=== PATIENT | male | born 1945 | race African-American/Black ===

== ENCOUNTER 2017-07-03 01:02 | Inpatient (IN) | payer MEDICARE, MEDICAID ==
[~2017-07-03] VITALS: Ht 180.3 cm; Wt 99.3 kg
[~2017-07-03 01:02] MED LIST: FINA5TAB11 PO; FURO40TA5 PO; MAGN400C PO; METF10002 PO; POTA10CA42 PO; SITA100T11 PO; TAMS0.4C31 PO
[2017-07-03 07:42] LABS: BASOPHILS % 0.8 % (0.0-2.0); EOSINOPHILS % 7.3 % (0.0-5.0); HEMATOCRIT. 39.5 % (42.0-52.0); HEMOGLOBIN. 13.1 g/dL (14.0-18.0); MEAN CORPUSCULAR HEMOGLOBIN 28.7 pg (28.0-32.0); MEAN CORPUSCULAR VOLUME 86.2 fL (80.0-94.0); MONOCYTES % 8.4 % (2.0-8.0); NEUTROPHILS % 61.5 % (40.0-76.0); PLATELET 213 x1000/uL (130-400); RED BLOOD CELL COUNT 4.58 mill/uL (4.7-6.1); RED CELL DISTRIBUTION WIDTH 14.3 % (11.6-14.6)
[2017-07-03 07:50] LABS: INR 1.1; PARTIAL THROMBOPLASTIN TIME 26.4 sec (23.4-31.0); PROTHROMBIN TIME 11.2 sec (9.4-11.6)
[2017-07-03 07:58] LABS: CARBON DIOXIDE 34 mEq/L (21-32); CHLORIDE 102 mEq/L (98-107)
[2017-07-03 08:04] LABS: TROPONIN I 0.07 ng/mL (0.00-0.04)
[2017-07-03] MEDS ORDERED: ASPIRIN 325MG EC TABLET PO ONE (08:15)
[2017-07-03] MEDS ORDERED: FUROSEMIDE 40MG TABLET PO ONE (09:00)
[2017-07-03] MEDS ORDERED: ACETAMINOPHEN 325MG TABLET PO PRN (11:00)
[2017-07-03] MEDS ORDERED: ONDANSETRON HCL 4MG/2ML VIAL IV PRN (11:00)
[2017-07-03] MEDS ORDERED: GUAIFENESIN 200MG/10ML SUGAR FREE UDC PO PRN (11:00)
[2017-07-03] MEDS ORDERED: DOCUSATE SODIUM 100MG CAPSULE PO PRN (11:00)
[2017-07-03] MEDS ORDERED: ENOXAPARIN 40MG/0.4ML SYR SUBCUT SCH (11:00)
[2017-07-03] MEDS ORDERED: MAGNESIUM/ALUMINUM HYDROXIDE/SIMETHICONE 30ML UDC PO PRN (11:00)
[2017-07-03] MEDS ORDERED: IPRATROPIUM/ALBUTEROL 0.5-3(2.5)MG/3ML NEB INH PRN (11:00)
[2017-07-03 11:37] LABS: CARBON DIOXIDE 35 mEq/L (21-32); CHLORIDE 101 mEq/L (98-107)
[2017-07-03 13:29] LABS: CLARITY URINE CLEAR (CLEAR); COLOR URINE YELLOW (YELLOW); KETONES URINE NEGATIVE (NEGATIVE); LEUKOCYTE ESTERASE URINE NEGATIVE (NEGATIVE); NITRITE URINE NEGATIVE (NEGATIVE); OCCULT BLOOD URINE NEGATIVE (NEGATIVE); PROTEIN URINE NEGATIVE (NEGATIVE); UROBILINOGEN URINE 0.2 E.U./dL (0.2-1.0)
[2017-07-03 14:25] LABS: *AMPHETAMINES SCREEN URINE NEGATIVE (NEGATIVE); *BARBITURATES SCREEN URINE NEGATIVE (NEGATIVE); *BENZODIAZEPINES SCREEN URINE NEGATIVE (NEGATIVE); *COCAINE SCREEN URINE NEGATIVE (NEGATIVE); CANNABINOID URINE SCREEN NEGATIVE (NEGATIVE); METHADONE URINE SCREEN NEGATIVE (NEGATIVE); OPIATES URINE SCREEN NEGATIVE (NEGATIVE); PHENCYCLIDINE URINE SCREEN NEGATIVE (NEGATIVE)
[2017-07-03 18:05] LABS: CREATINE KINASE MB FRACTION 1.6 ng/mL (0.5-3.6); TROPONIN I 0.08 ng/mL (0.00-0.04)
[2017-07-03] MEDS: CLONIDINE 0.1MG TABLET PO PRN (20:25)
[2017-07-03] MEDS: HYDROCODONE/ACETAMINOPHEN 5/325MG TABLET PO PRN (21:10)
[2017-07-03 23:30] VITALS: BP 115/76
[2017-07-04] MEDS ORDERED: FUROSEMIDE 40MG/4ML VIAL IV SCH (00:45)
[2017-07-04] MEDS ORDERED: GABA-531 PO (01:43)
[2017-07-04] MEDS ORDERED: PRAV20TA57 PO (01:43)
[2017-07-04] MEDS ORDERED: CARV12.545 PO (01:43)
[2017-07-04] MEDS ORDERED: DEXTROSE 50% WATER 50ML SYRINGE IV PRN (01:45)
[2017-07-04] MEDS ORDERED: CHOL100046 PO (02:07)
[2017-07-04 04:00] VITALS: BP 162/92
[2017-07-04 06:38] LABS: BASOPHILS % 0.5 % (0.0-2.0); EOSINOPHILS % 8.6 % (0.0-5.0); HEMATOCRIT. 37.4 % (42.0-52.0); HEMOGLOBIN. 12.7 g/dL (14.0-18.0); LYMPHOCYTES % 31.8 % (20.0-50.0); MEAN CORPUSCULAR VOLUME 85.3 fL (80.0-94.0); MEAN PLATELET VOLUME 8.5 fl (7.4-10.4); MONOCYTES % 9.3 % (2.0-8.0); NEUTROPHILS % 49.8 % (40.0-76.0); PLATELET 201 x1000/uL (130-400); RED BLOOD CELL COUNT 4.39 mill/uL (4.7-6.1); RED CELL DISTRIBUTION WIDTH 14.5 % (11.6-14.6)
[2017-07-04] MEDS: CLONIDINE 0.1MG TABLET PO PRN (06:53)
[2017-07-04] MEDS: BLOOD SUGAR DIAGNOSTIC STRIP TEST SCH ×4 (06:55→21:30)
[2017-07-04 07:42] VITALS: BP 145/86
[2017-07-04] MEDS: INSULIN LISPRO 100 UNITS/ML SUBCUT SCH ×4 (07:50→21:00)
[2017-07-04 08:12] LABS: AMYLASE 41 IU/L (25-115); CARBON DIOXIDE 31 mEq/L (21-32); CHLORIDE 104 mEq/L (98-107); HDL CHOLESTEROL 45 mg/dL (40-59); LDL CHOLESTEROL 55 mg/dL (5-100)
[2017-07-04] MEDS ORDERED: BUDESONIDE 0.5MG/2ML NEB HHN SCH (09:00)
[2017-07-04] MEDS: ASPIRIN 81MG EC TABLET PO SCH (09:51)
[2017-07-04] MEDS: ENOXAPARIN 30MG/0.3ML SYR SUBCUT SCH ×2 (09:51→21:28)
[2017-07-04] MEDS ORDERED: MEDICATION NOT ON FORMULARY EA (Sitagliptin Phosphate (Januvia) 1 TAB) PO SCH (10:45)
[2017-07-04] MEDS ORDERED: MEDICATION NOT ON FORMULARY EA (Magnesium Oxide (Magnesium) 400 MG) PO SCH (10:45)
[2017-07-04] MEDS ORDERED: MEDICATION NOT ON FORMULARY EA (Pravastatin Sodium 20 MG) PO SCH (10:45)
[2017-07-04] MEDS ORDERED: MEDICATION NOT ON FORMULARY EA (Potassium Chloride 10 MEQ) PO SCH (10:45)
[2017-07-04 12:00] VITALS: BP 148/92
[2017-07-04] MEDS: TAMSULOSIN HCL 0.4MG SR CAPSULE PO SCH (12:49)
[2017-07-04] MEDS: GABAPENTIN 300MG CAPSULE PO SCH (12:49)
[2017-07-04] MEDS: FINASTERIDE 5MG TABLET PO SCH (12:50)
[2017-07-04] MEDS: FUROSEMIDE 40MG/4ML VIAL IV SCH ×2 (14:17→21:39)
[2017-07-04] MEDS: MAGNESIUM OXIDE 400MG TABLET PO SCH (14:17)
[2017-07-04] MEDS: POTASSIUM CHLORIDE 10MEQ TABLET SR PO SCH (14:17)
[2017-07-04] MEDS: LINAGLIPTIN 5MG TABLET PO SCH (14:18)
[2017-07-04] MEDS ORDERED: POTASSIUM CHLORIDE 20MEQ TABLET SR PO SCH (15:30)
[2017-07-04 16:00] VITALS: BP 136/75
[2017-07-04] MEDS ORDERED: POTASSIUM CHLORIDE 20MEQ TABLET SR PO NR (16:15)
[2017-07-04] MEDS: METFORMIN HCL 500MG TABLET PO SCH (18:00)
[2017-07-04 20:00] VITALS: BP 155/88
[2017-07-04] MEDS ORDERED: ATORVASTATIN CALCIUM 10MG TABLET PO SCH (21:00)
[2017-07-04] MEDS: HYDROCODONE/ACETAMINOPHEN 5/325MG TABLET PO PRN (21:29)
[2017-07-04] MEDS: CARVEDILOL 12.5MG TABLET PO SCH (21:29)
[2017-07-05] VITALS: BP 139/88
[2017-07-05 04:00] VITALS: BP 136/78
[2017-07-05] MEDS: BLOOD SUGAR DIAGNOSTIC STRIP TEST SCH ×2 (06:13→12:20)
[2017-07-05 06:50] LABS: BASOPHILS % 0.6 % (0.0-2.0); EOSINOPHILS % 9.2 % (0.0-5.0); HEMATOCRIT. 36.8 % (42.0-52.0); HEMOGLOBIN. 12.3 g/dL (14.0-18.0); LYMPHOCYTES % 32.7 % (20.0-50.0); MEAN CORPUSCULAR HEMOGLOBIN 28.3 pg (28.0-32.0); MEAN CORPUSCULAR VOLUME 84.9 fL (80.0-94.0); MEAN PLATELET VOLUME 8.2 fl (7.4-10.4); MONOCYTES % 7.6 % (2.0-8.0); NEUTROPHILS % 49.9 % (40.0-76.0); PLATELET 222 x1000/uL (130-400); RED BLOOD CELL COUNT 4.33 mill/uL (4.7-6.1); RED CELL DISTRIBUTION WIDTH 14.2 % (11.6-14.6)
[2017-07-05 07:44] LABS: CARBON DIOXIDE 27 mEq/L (21-32); CHLORIDE 101 mEq/L (98-107)
[2017-07-05] MEDS: INSULIN LISPRO 100 UNITS/ML SUBCUT SCH ×2 (07:50→13:36)
[2017-07-05 08:00] VITALS: BP 146/80
[2017-07-05] MEDS ORDERED: MEDICATION NOT ON FORMULARY EA (Cholecalciferol (Vitamin D) 50,000 UNIT) PO SCH (09:00)
[2017-07-05] MEDS ORDERED: ERGOCALCIFEROL 50000UNITS CAPSULE PO SCH (09:00)
[2017-07-05] MEDS: GABAPENTIN 300MG CAPSULE PO SCH (10:09)
[2017-07-05] MEDS: POTASSIUM CHLORIDE 10MEQ TABLET SR PO SCH (10:09)
[2017-07-05] MEDS: MAGNESIUM OXIDE 400MG TABLET PO SCH (10:10)
[2017-07-05] MEDS: TAMSULOSIN HCL 0.4MG SR CAPSULE PO SCH (10:10)
[2017-07-05] MEDS: LINAGLIPTIN 5MG TABLET PO SCH (10:13)
[2017-07-05] MEDS: FINASTERIDE 5MG TABLET PO SCH (10:13)
[2017-07-05] MEDS: CARVEDILOL 12.5MG TABLET PO SCH (10:13)
[2017-07-05] MEDS: FUROSEMIDE 40MG/4ML VIAL IV SCH (10:13)
[2017-07-05] MEDS: ASPIRIN 81MG EC TABLET PO SCH (10:13)
[2017-07-05] MEDS: ENOXAPARIN 30MG/0.3ML SYR SUBCUT SCH (10:14)
[2017-07-05] MEDS: METFORMIN HCL 500MG TABLET PO SCH (10:27)
[2017-07-05 12:00] VITALS: BP 156/92
[2017-07-05 15:25] VITALS: BP 145/84
== END 2017-07-05 16:15 | disposition home or self-care (01) | DRG 291 ==
LOC: ER 01:02 → 6WST 06:55 → EDBEDREQ 20:17 → ENRESERV 21:10 → EDBEDREQ 22:49
PROVIDERS: ADMIT Internal Medicine; ATTEND Internal Medicine
DX: I11.0 Hypertensive heart disease with heart failure (principal); K85.90 Acute pancreatitis without necrosis or infection, unspecified; I24.9 Acute ischemic heart disease, unspecified; J44.9 Chronic obstructive pulmonary disease, unspecified; I50.23 Acute on chronic systolic (congestive) heart failure; I42.0 Dilated cardiomyopathy; E11.9 Type 2 diabetes mellitus without complications; E78.00 Pure hypercholesterolemia, unspecified; E78.5 Hyperlipidemia, unspecified; K76.0 Fatty (change of) liver, not elsewhere classified; N40.0 Benign prostatic hyperplasia without lower urinary tract symptoms; Z90.49 Acquired absence of other specified parts of digestive tract; Z79.899 Other long term (current) drug therapy
CPT/HCPCS: 36415; 71045; 76700; 80048; 80053; 80061; 80305; 81001; 82150; 82550; 82553; 82962; 83690; 83735; 83880; 84443; 84484; 85025; 85610; 85730; 87040; 93005; 93306; 93970; 99285; J1650; J1815; J1940

== ENCOUNTER 2018-09-23 15:10 | Inpatient (IN) | payer MEDICARE, OTHER ==
[~2018-09-23] VITALS: Ht 177.8 cm; Wt 95.5 kg
[~2018-09-23 15:10] MED LIST changes: +CARV12.545 PO; +CHOL100046 PO; +GABA-531 PO; +METF-416 PO; -METF10002 PO; +PRAV20TA57 PO
[2018-09-23 15:47] LABS: BASOPHILS % 0.7 % (0.0-2.0); EOSINOPHILS % 3.5 % (0.0-5.0); HEMATOCRIT. 44.5 % (42.0-52.0); HEMOGLOBIN. 14.8 g/dL (14.0-18.0); LYMPHOCYTES % 17.5 % (20.0-50.0); MEAN CORPUSCULAR HEMOGLOBIN 28.4 pg (28.0-32.0); MEAN CORPUSCULAR VOLUME 85.3 fL (80.0-94.0); MEAN PLATELET VOLUME 8.7 fl (7.4-10.4); NEUTROPHILS % 72.3 % (40.0-76.0); PLATELET 202 x1000/uL (130-400); RED BLOOD CELL COUNT 5.22 mill/uL (4.7-6.1); RED CELL DISTRIBUTION WIDTH 14.6 % (11.6-14.6)
[2018-09-23 15:52] LABS: CHLORIDE 99 mEq/L (98-107)
[2018-09-23 15:53] LABS: INR 1.1; PROTHROMBIN TIME 11.5 sec (9.1-11.1)
[2018-09-23 15:59] LABS: ETHANOL BLOOD < 10 mg/dL
[2018-09-23 16:01] LABS: LDL CHOLESTEROL 140 mg/dL (5-100)
[2018-09-23 16:03] LABS: CREATINE KINASE 133 IU/L (39-308)
[2018-09-23] MEDS ORDERED: INSULIN REGULAR (HUMULIN R) 300UNITS/3ML SUBCUT ONE (16:15)
[2018-09-23] MEDS ORDERED: IOHEXOL-350 100 ML BOTTLE ONE (16:55)
[2018-09-23 19:02] LABS: CLARITY URINE CLEAR (CLEAR); COLOR URINE YELLOW (YELLOW); KETONES URINE NEGATIVE (NEGATIVE); LEUKOCYTE ESTERASE URINE NEGATIVE (NEGATIVE); NITRITE URINE NEGATIVE (NEGATIVE); OCCULT BLOOD URINE TRACE (NEGATIVE); PROTEIN URINE TRACE (NEGATIVE); SPECIFIC GRAVITY URINE 1.033 (1.005-1.030); UROBILINOGEN URINE 0.2 E.U./dL (0.2-1.0)
[2018-09-23] MEDS ORDERED: DOCUSATE SODIUM 100MG CAPSULE PO PRN (19:15)
[2018-09-23] MEDS ORDERED: CLONIDINE 0.1MG TABLET PO PRN (19:15)
[2018-09-23] MEDS ORDERED: ACETAMINOPHEN 325MG TABLET PO PRN (19:15)
[2018-09-23] MEDS ORDERED: ONDANSETRON HCL 4MG/2ML INJ IV PRN (19:15)
[2018-09-23 19:30] LABS: *AMPHETAMINES SCREEN URINE NEGATIVE (NEGATIVE); *BARBITURATES SCREEN URINE NEGATIVE (NEGATIVE)
[2018-09-23 19:31] LABS: *BENZODIAZEPINES SCREEN URINE NEGATIVE (NEGATIVE); *COCAINE SCREEN URINE NEGATIVE (NEGATIVE); CANNABINOID URINE SCREEN NEGATIVE (NEGATIVE); METHADONE URINE SCREEN NEGATIVE (NEGATIVE); OPIATES URINE SCREEN NEGATIVE (NEGATIVE); PHENCYCLIDINE URINE SCREEN NEGATIVE (NEGATIVE)
[2018-09-23] MEDS ORDERED: INSULIN GLARGINE UD 100 UNITS/ML SYR SUBCUT SCH (22:00)
[2018-09-23] MEDS ORDERED: FINASTERIDE 5MG TABLET PO SCH (22:00)
[2018-09-23] MEDS ORDERED: ENOXAPARIN 40MG/0.4ML SYR SUBCUT NR (22:00)
[2018-09-23] MEDS ORDERED: CARVEDILOL 12.5MG TABLET PO NR (22:15)
[2018-09-23] MEDS ORDERED: ASPIRIN 81MG EC TABLET PO NR (22:15)
[2018-09-23] MEDS ORDERED: ATORVASTATIN CALCIUM 20MG TABLET PO SCH (22:15)
[2018-09-24] MEDS: HYDROCODONE/ACETAMINOPHEN 5/325MG TABLET PO PRN (01:08)
[2018-09-24 05:15] LABS: EOSINOPHILS % 5.3 % (0.0-5.0); HEMATOCRIT. 41.3 % (42.0-52.0); HEMOGLOBIN. 13.6 g/dL (14.0-18.0); LYMPHOCYTES % 28.4 % (20.0-50.0); MEAN CORPUSCULAR HEMOGLOBIN 28.1 pg (28.0-32.0); MEAN CORPUSCULAR VOLUME 85.4 fL (80.0-94.0); MEAN PLATELET VOLUME 8.4 fl (7.4-10.4); MONOCYTES % 8.5 % (2.0-8.0); NEUTROPHILS % 56.8 % (40.0-76.0); PLATELET 170 x1000/uL (130-400); RED BLOOD CELL COUNT 4.84 mill/uL (4.7-6.1); RED CELL DISTRIBUTION WIDTH 14.5 % (11.6-14.6)
[2018-09-24 05:21] LABS: CHLORIDE 102 mEq/L (98-107)
[2018-09-24] MEDS: FINASTERIDE 5MG TABLET PO SCH (09:00)
[2018-09-24] MEDS: TAMSULOSIN HCL 0.4MG SR CAPSULE PO SCH (09:00)
[2018-09-24] MEDS: CARVEDILOL 12.5MG TABLET PO SCH ×2 (09:00→22:29)
[2018-09-24] MEDS: ASPIRIN 81MG EC TABLET PO SCH (09:00)
[2018-09-24] MEDS ORDERED: ATORVASTATIN CALCIUM 20MG TABLET PO SCH (21:00)
[2018-09-24] MEDS ORDERED: ENOXAPARIN 40MG/0.4ML SYR SUBCUT SCH (22:00)
[2018-09-24] MEDS: INSULIN GLARGINE UD 100 UNITS/ML SYR SUBCUT SCH (22:29)
[2018-09-24 23:30] VITALS: BP 161/108
[2018-09-25] VITALS (14 sets, daily range): BP systolic 125–172; BP diastolic 77–108
[2018-09-25] MEDS: FINASTERIDE 5MG TABLET PO SCH (08:34)
[2018-09-25] MEDS: ENOXAPARIN 30MG/0.3ML SYR SUBCUT SCH ×2 (08:34→22:08)
[2018-09-25] MEDS: CARVEDILOL 12.5MG TABLET PO SCH ×2 (08:36→22:07)
[2018-09-25] MEDS: ASPIRIN 81MG EC TABLET PO SCH (08:36)
[2018-09-25] MEDS: TAMSULOSIN HCL 0.4MG SR CAPSULE PO SCH (08:37)
[2018-09-25] MEDS: LISINOPRIL 20MG TABLET PO SCH (09:51)
[2018-09-25] MEDS: HYDROCODONE/ACETAMINOPHEN 5/325MG TABLET PO PRN (11:03)
[2018-09-25 12:06] LABS: BASOPHILS % 0.3 % (0.0-2.0); EOSINOPHILS % 4.9 % (0.0-5.0); HEMATOCRIT. 40.3 % (42.0-52.0); HEMOGLOBIN. 13.3 g/dL (14.0-18.0); MEAN CORPUSCULAR HEMOGLOBIN 28.1 pg (28.0-32.0); MEAN PLATELET VOLUME 8.6 fl (7.4-10.4); MONOCYTES % 7.4 % (2.0-8.0); NEUTROPHILS % 65.4 % (40.0-76.0); PLATELET 161 x1000/uL (130-400); RED BLOOD CELL COUNT 4.74 mill/uL (4.7-6.1); RED CELL DISTRIBUTION WIDTH 14.7 % (11.6-14.6)
[2018-09-25 12:14] LABS: CHLORIDE 100 mEq/L (98-107)
[2018-09-25] MEDS: BLOOD SUGAR DIAGNOSTIC STRIP TEST SCH ×3 (12:57→21:00)
[2018-09-25] MEDS ORDERED: NON FORMULARY PATIENT HOME MED XX SCH (13:00)
[2018-09-25] MEDS ORDERED: DEXTROSE 50% WATER 50ML SYRINGE IV PRN (13:00)
[2018-09-25] MEDS: LINAGLIPTIN 5MG TABLET PO SCH (13:17)
[2018-09-25] MEDS: INSULIN LISPRO 100 UNITS/ML SUBCUT SCH ×3 (13:19→22:09)
[2018-09-25] MEDS: HYDROMORPHONE HCL/PF 2MG/ML CPJ IV PRN ×2 (16:06→22:16)
[2018-09-25] MEDS: METFORMIN HCL 500MG TABLET PO SCH (18:22)
[2018-09-25] MEDS: ATORVASTATIN CALCIUM 40MG TABLET PO SCH (22:07)
[2018-09-26] VITALS (12 sets, daily range): BP systolic 116–176; BP diastolic 70–99
[2018-09-26] MEDS: INSULIN GLARGINE UD 100 UNITS/ML SYR SUBCUT SCH (00:03)
[2018-09-26 06:26] LABS: BASOPHILS % 0.2 % (0.0-2.0); EOSINOPHILS % 1.9 % (0.0-5.0); HEMATOCRIT. 39.7 % (42.0-52.0); HEMOGLOBIN. 13.2 g/dL (14.0-18.0); LYMPHOCYTES % 12.8 % (20.0-50.0); MEAN CORPUSCULAR VOLUME 84.5 fL (80.0-94.0); MEAN PLATELET VOLUME 8.8 fl (7.4-10.4); NEUTROPHILS % 77.1 % (40.0-76.0); PLATELET 175 x1000/uL (130-400); RED CELL DISTRIBUTION WIDTH 14.6 % (11.6-14.6)
[2018-09-26 06:39] LABS: CHLORIDE 103 mEq/L (98-107)
[2018-09-26] MEDS: BLOOD SUGAR DIAGNOSTIC STRIP TEST SCH ×4 (08:23→21:00)
[2018-09-26] MEDS: ENOXAPARIN 30MG/0.3ML SYR SUBCUT SCH ×2 (09:05→22:34)
[2018-09-26] MEDS: LISINOPRIL 20MG TABLET PO SCH (09:06)
[2018-09-26] MEDS: LINAGLIPTIN 5MG TABLET PO SCH (09:06)
[2018-09-26] MEDS: FINASTERIDE 5MG TABLET PO SCH (09:07)
[2018-09-26] MEDS: TAMSULOSIN HCL 0.4MG SR CAPSULE PO SCH (09:07)
[2018-09-26] MEDS: ASPIRIN 81MG EC TABLET PO SCH (09:07)
[2018-09-26] MEDS: CARVEDILOL 12.5MG TABLET PO SCH ×2 (09:08→22:35)
[2018-09-26] MEDS: INSULIN LISPRO 100 UNITS/ML SUBCUT SCH ×4 (09:10→22:36)
[2018-09-26] MEDS: METFORMIN HCL 500MG TABLET PO SCH ×2 (09:25→17:32)
[2018-09-26] MEDS: HYDROMORPHONE HCL/PF 2MG/ML CPJ IV PRN (15:35)
[2018-09-26] MEDS: ATORVASTATIN CALCIUM 40MG TABLET PO SCH (22:34)
[2018-09-26] MEDS ORDERED: INSULIN GLARGINE UD 100 UNITS/ML SYR SUBCUT SCH (23:30)
[2018-09-27] VITALS (12 sets, daily range): BP systolic 118–166; BP diastolic 60–93
[2018-09-27] MEDS: HYDROCODONE/ACETAMINOPHEN 5/325MG TABLET PO PRN (04:43)
[2018-09-27 06:14] LABS: BASOPHILS % 0.1 % (0.0-2.0); EOSINOPHILS % 2.4 % (0.0-5.0); HEMATOCRIT. 40.7 % (42.0-52.0); HEMOGLOBIN. 13.2 g/dL (14.0-18.0); LYMPHOCYTES % 12.2 % (20.0-50.0); MEAN CORPUSCULAR VOLUME 86.5 fL (80.0-94.0); NEUTROPHILS % 75.3 % (40.0-76.0); PLATELET 149 x1000/uL (130-400); RED CELL DISTRIBUTION WIDTH 14.3 % (11.6-14.6)
[2018-09-27 06:58] LABS: CHLORIDE 103 mEq/L (98-107)
[2018-09-27] MEDS: BLOOD SUGAR DIAGNOSTIC STRIP TEST SCH ×4 (08:09→20:59)
[2018-09-27] MEDS: METFORMIN HCL 500MG TABLET PO SCH ×2 (08:21→17:41)
[2018-09-27] MEDS: INSULIN LISPRO 100 UNITS/ML SUBCUT SCH ×4 (08:21→21:10)
[2018-09-27] MEDS: ENOXAPARIN 30MG/0.3ML SYR SUBCUT SCH ×2 (08:21→20:59)
[2018-09-27] MEDS: FINASTERIDE 5MG TABLET PO SCH (08:22)
[2018-09-27] MEDS: LISINOPRIL 20MG TABLET PO SCH (08:22)
[2018-09-27] MEDS: CARVEDILOL 12.5MG TABLET PO SCH ×2 (08:22→20:58)
[2018-09-27] MEDS: LINAGLIPTIN 5MG TABLET PO SCH (08:22)
[2018-09-27] MEDS: ASPIRIN 81MG EC TABLET PO SCH (08:22)
[2018-09-27] MEDS: TAMSULOSIN HCL 0.4MG SR CAPSULE PO SCH (08:22)
[2018-09-27] MEDS: HYDROMORPHONE HCL/PF 2MG/ML CPJ IV PRN ×2 (12:16→18:34)
[2018-09-27] MEDS ORDERED: BISACODYL 5MG TABLET PO PRN (15:00)
[2018-09-27] MEDS ORDERED: DOCUSATE SODIUM 100MG CAPSULE PO SCH (17:00)
[2018-09-27] MEDS: ATORVASTATIN CALCIUM 40MG TABLET PO SCH (20:58)
== END 2018-09-27 23:49 | DRG 65 ==
LOC: ER 16:03 → EDBEDREQ 18:50 → EDBEDREQTM 18:50 → 5EST 09-24 18:47 → ENRESERV 09-24 20:59
PROVIDERS: ADMIT Internal Medicine Nephrology; ATTEND Internal Medicine Nephrology
PROC: 4B02XSZ Measurement of Cardiac Pacemaker, External Approach (ICD-10-PCS; principal; 2018-09-24)
DX: I63.9 Cerebral infarction, unspecified (principal); G81.91 Hemiplegia, unspecified affecting right dominant side; I25.10 Atherosclerotic heart disease of native coronary artery without angina pectoris; E78.5 Hyperlipidemia, unspecified; I11.9 Hypertensive heart disease without heart failure; E11.65 Type 2 diabetes mellitus with hyperglycemia; G89.29 Other chronic pain; I25.5 Ischemic cardiomyopathy; Z79.4 Long term (current) use of insulin; Z79.899 Other long term (current) drug therapy; Z90.49 Acquired absence of other specified parts of digestive tract; Z95.810 Presence of automatic (implantable) cardiac defibrillator; Z79.82 Long term (current) use of aspirin
CPT/HCPCS: 36415; 70496; 70498; 71045; 80048; 80305; 80320; 82465; 82550; 82962; 83721; 83880; 84484; 92610; 93005; 93306; 96372; 97112; 97163; 97166; 97530; 97535; 99291; J1170; J1650; J1815; Q9967; G0480

== ENCOUNTER 2018-09-27 23:12 | Inpatient (IN) | payer MEDICARE, OTHER ==
[~2018-09-27] VITALS: Ht 177.8 cm; Wt 95.5 kg
[2018-09-27 23:30] VITALS: BP 128/72
[2018-09-28] VITALS: BP 128/72
[2018-09-28] MEDS ORDERED: ONDANSETRON HCL 4MG/2ML INJ IV PRN (02:30)
[2018-09-28] MEDS ORDERED: HYDROMORPHONE HCL/PF 2MG/ML CPJ IV PRN (02:30)
[2018-09-28] MEDS ORDERED: DEXTROSE 50% WATER 50ML SYRINGE IV PRN (02:30)
[2018-09-28] MEDS ORDERED: CLONIDINE 0.1MG TABLET PO PRN (02:30)
[2018-09-28 06:28] LABS: BASOPHILS % 0.7 % (0.0-2.0); EOSINOPHILS % 2.8 % (0.0-5.0); HEMATOCRIT. 36.6 % (42.0-52.0); HEMOGLOBIN. 12.5 g/dL (14.0-18.0); MEAN CORPUSCULAR HEMOGLOBIN 28.6 pg (28.0-32.0); MEAN CORPUSCULAR VOLUME 83.9 fL (80.0-94.0); MEAN PLATELET VOLUME 8.8 fl (7.4-10.4); MONOCYTES % 9.9 % (2.0-8.0); NEUTROPHILS % 77.6 % (40.0-76.0); PLATELET 156 x1000/uL (130-400); RED BLOOD CELL COUNT 4.36 mill/uL (4.7-6.1); RED CELL DISTRIBUTION WIDTH 14.6 % (11.6-14.6)
[2018-09-28 06:53] LABS: CHLORIDE 103 mEq/L (98-107)
[2018-09-28] MEDS: INSULIN LISPRO 100 UNITS/ML SUBCUT SCH ×4 (07:14→21:43)
[2018-09-28] MEDS: BLOOD SUGAR DIAGNOSTIC STRIP TEST SCH ×4 (07:15→21:35)
[2018-09-28 08:00] VITALS: BP 109/63
[2018-09-28] MEDS: LINAGLIPTIN 5MG TABLET PO SCH (09:41)
[2018-09-28] MEDS: DOCUSATE SODIUM 100MG CAPSULE PO SCH ×2 (09:41→16:47)
[2018-09-28] MEDS: ENOXAPARIN 30MG/0.3ML SYR SUBCUT SCH ×2 (09:41→21:35)
[2018-09-28] MEDS: METFORMIN HCL 500MG TABLET PO SCH ×2 (09:41→16:47)
[2018-09-28] MEDS: TAMSULOSIN HCL 0.4MG SR CAPSULE PO SCH (09:42)
[2018-09-28] MEDS: LISINOPRIL 20MG TABLET PO SCH (09:42)
[2018-09-28] MEDS: CARVEDILOL 12.5MG TABLET PO SCH ×2 (09:42→21:34)
[2018-09-28] MEDS: ASPIRIN 81MG TABLET PO SCH (09:43)
[2018-09-28] MEDS: FINASTERIDE 5MG TABLET PO SCH (09:43)
[2018-09-28] MEDS: HYDROCODONE/ACETAMINOPHEN 5/325MG TABLET PO PRN (18:14)
[2018-09-28 20:00] VITALS: BP 142/73
[2018-09-28] MEDS: ATORVASTATIN CALCIUM 40MG TABLET PO SCH (21:34)
[2018-09-28] MEDS: INSULIN GLARGINE UD 100 UNITS/ML SYR SUBCUT SCH (21:42)
[2018-09-28] MEDS ORDERED: INSULIN GLARGINE UD 100 UNITS/ML SYR SUBCUT SCH (22:00)
[2018-09-28] MEDS: TRAMADOL 50MG TABLET PO PRN (23:51)
[2018-09-29] MEDS: BLOOD SUGAR DIAGNOSTIC STRIP TEST SCH ×4 (06:45→21:18)
[2018-09-29] MEDS: INSULIN LISPRO 100 UNITS/ML SUBCUT SCH ×4 (06:48→21:14)
[2018-09-29 08:25] VITALS: BP 138/73
[2018-09-29] MEDS: TRAMADOL 50MG TABLET PO PRN ×2 (09:01→18:18)
[2018-09-29] MEDS: DOCUSATE SODIUM 100MG CAPSULE PO SCH ×2 (09:01→16:24)
[2018-09-29] MEDS: CARVEDILOL 12.5MG TABLET PO SCH ×2 (09:02→21:11)
[2018-09-29] MEDS: FINASTERIDE 5MG TABLET PO SCH (09:02)
[2018-09-29] MEDS: TAMSULOSIN HCL 0.4MG SR CAPSULE PO SCH (09:02)
[2018-09-29] MEDS: METFORMIN HCL 500MG TABLET PO SCH ×2 (09:02→16:24)
[2018-09-29] MEDS: LISINOPRIL 20MG TABLET PO SCH (09:02)
[2018-09-29] MEDS: ASPIRIN 81MG TABLET PO SCH (09:03)
[2018-09-29] MEDS: LINAGLIPTIN 5MG TABLET PO SCH (09:03)
[2018-09-29] MEDS: ENOXAPARIN 30MG/0.3ML SYR SUBCUT SCH ×2 (09:04→21:13)
[2018-09-29] MEDS ORDERED: NA PHOS,M-B/NA PHOS,DI-BA ENEMA 118ML PR PRN (19:00)
[2018-09-29 20:00] VITALS: BP 127/70
[2018-09-29] MEDS: ATORVASTATIN CALCIUM 40MG TABLET PO SCH (21:11)
[2018-09-29] MEDS: INSULIN GLARGINE UD 100 UNITS/ML SYR SUBCUT SCH (21:18)
[2018-09-30] MEDS: TRAMADOL 50MG TABLET PO PRN (06:11)
[2018-09-30] MEDS: INSULIN LISPRO 100 UNITS/ML SUBCUT SCH ×4 (06:44→21:03)
[2018-09-30] MEDS: BLOOD SUGAR DIAGNOSTIC STRIP TEST SCH ×4 (06:45→21:07)
[2018-09-30 06:54] LABS: CHLORIDE 102 mEq/L (98-107)
[2018-09-30 07:45] LABS: BASOPHILS % 0.3 % (0.0-2.0); EOSINOPHILS % 4.3 % (0.0-5.0); HEMATOCRIT. 34.2 % (42.0-52.0); HEMOGLOBIN. 11.4 g/dL (14.0-18.0); LYMPHOCYTES % 16.2 % (20.0-50.0); MEAN CORPUSCULAR HEMOGLOBIN 28.1 pg (28.0-32.0); MEAN CORPUSCULAR VOLUME 84.3 fL (80.0-94.0); MEAN PLATELET VOLUME 9.4 fl (7.4-10.4); MONOCYTES % 9.4 % (2.0-8.0); NEUTROPHILS % 69.8 % (40.0-76.0); PLATELET 194 x1000/uL (130-400); RED BLOOD CELL COUNT 4.06 mill/uL (4.7-6.1); RED CELL DISTRIBUTION WIDTH 14.4 % (11.6-14.6)
[2018-09-30 08:05] VITALS: BP 159/88
[2018-09-30] MEDS: LISINOPRIL 20MG TABLET PO SCH (08:28)
[2018-09-30] MEDS: METFORMIN HCL 500MG TABLET PO SCH ×2 (08:28→17:18)
[2018-09-30] MEDS: ASPIRIN 81MG TABLET PO SCH (08:28)
[2018-09-30] MEDS: TAMSULOSIN HCL 0.4MG SR CAPSULE PO SCH (08:28)
[2018-09-30] MEDS: CARVEDILOL 12.5MG TABLET PO SCH ×2 (08:28→21:02)
[2018-09-30] MEDS: DOCUSATE SODIUM 100MG CAPSULE PO SCH ×2 (08:28→17:18)
[2018-09-30] MEDS: LINAGLIPTIN 5MG TABLET PO SCH (08:28)
[2018-09-30] MEDS: FINASTERIDE 5MG TABLET PO SCH (08:28)
[2018-09-30] MEDS: LACTULOSE 20G/30ML UDC PO PRN (08:31)
[2018-09-30] MEDS: ENOXAPARIN 30MG/0.3ML SYR SUBCUT SCH ×2 (08:32→21:07)
[2018-09-30 20:00] VITALS: BP 148/93
[2018-09-30] MEDS: ATORVASTATIN CALCIUM 40MG TABLET PO SCH (21:00)
[2018-09-30] MEDS: HYDROCODONE/ACETAMINOPHEN 5/325MG TABLET PO PRN (21:43)
[2018-09-30] MEDS: INSULIN GLARGINE UD 100 UNITS/ML SYR SUBCUT SCH (21:46)
[2018-10-01 05:52] LABS: EOSINOPHILS % 4.3 % (0.0-5.0); HEMATOCRIT. 36.8 % (42.0-52.0); HEMOGLOBIN. 12.5 g/dL (14.0-18.0); LYMPHOCYTES % 15.1 % (20.0-50.0); MEAN CORPUSCULAR HEMOGLOBIN 28.5 pg (28.0-32.0); MEAN CORPUSCULAR VOLUME 84.2 fL (80.0-94.0); MEAN PLATELET VOLUME 8.8 fl (7.4-10.4); MONOCYTES % 9.9 % (2.0-8.0); NEUTROPHILS % 69.7 % (40.0-76.0); PLATELET 230 x1000/uL (130-400); RED BLOOD CELL COUNT 4.37 mill/uL (4.7-6.1); RED CELL DISTRIBUTION WIDTH 14.2 % (11.6-14.6)
[2018-10-01] MEDS: INSULIN LISPRO 100 UNITS/ML SUBCUT SCH ×4 (05:56→21:24)
[2018-10-01] MEDS: BLOOD SUGAR DIAGNOSTIC STRIP TEST SCH ×4 (05:57→20:11)
[2018-10-01 06:41] LABS: CHLORIDE 101 mEq/L (98-107)
[2018-10-01 08:00] VITALS: BP 146/85
[2018-10-01] MEDS: FINASTERIDE 5MG TABLET PO SCH (09:05)
[2018-10-01] MEDS: ASPIRIN 81MG TABLET PO SCH (09:05)
[2018-10-01] MEDS: METFORMIN HCL 500MG TABLET PO SCH ×2 (09:05→17:47)
[2018-10-01] MEDS: LINAGLIPTIN 5MG TABLET PO SCH (09:05)
[2018-10-01] MEDS: DOCUSATE SODIUM 100MG CAPSULE PO SCH ×2 (09:06→17:47)
[2018-10-01] MEDS: ENOXAPARIN 30MG/0.3ML SYR SUBCUT SCH ×2 (09:06→20:11)
[2018-10-01] MEDS: TAMSULOSIN HCL 0.4MG SR CAPSULE PO SCH (09:11)
[2018-10-01] MEDS: LISINOPRIL 20MG TABLET PO SCH (09:11)
[2018-10-01] MEDS: CARVEDILOL 12.5MG TABLET PO SCH ×2 (09:11→20:10)
[2018-10-01 20:00] VITALS: BP 142/81
[2018-10-01] MEDS: ATORVASTATIN CALCIUM 40MG TABLET PO SCH (20:10)
[2018-10-01] MEDS: INSULIN GLARGINE UD 100 UNITS/ML SYR SUBCUT SCH (21:23)
[2018-10-02] MEDS: TRAMADOL 50MG TABLET PO PRN (01:33)
[2018-10-02] MEDS: BLOOD SUGAR DIAGNOSTIC STRIP TEST SCH ×4 (06:30→21:00)
[2018-10-02 07:49] VITALS: BP 151/81
[2018-10-02] MEDS: FINASTERIDE 5MG TABLET PO SCH (08:35)
[2018-10-02] MEDS: DOCUSATE SODIUM 100MG CAPSULE PO SCH ×2 (08:35→16:53)
[2018-10-02] MEDS: METFORMIN HCL 500MG TABLET PO SCH ×2 (08:35→16:53)
[2018-10-02] MEDS: ASPIRIN 81MG TABLET PO SCH (08:36)
[2018-10-02] MEDS: TAMSULOSIN HCL 0.4MG SR CAPSULE PO SCH (08:36)
[2018-10-02] MEDS: CARVEDILOL 12.5MG TABLET PO SCH ×2 (08:36→22:48)
[2018-10-02] MEDS: LINAGLIPTIN 5MG TABLET PO SCH (08:36)
[2018-10-02] MEDS: ENOXAPARIN 30MG/0.3ML SYR SUBCUT SCH ×2 (08:38→22:49)
[2018-10-02] MEDS: LISINOPRIL 20MG TABLET PO SCH (08:38)
[2018-10-02] MEDS: INSULIN LISPRO 100 UNITS/ML SUBCUT SCH ×4 (08:49→22:50)
[2018-10-02 20:00] VITALS: BP 145/81
[2018-10-02] MEDS: ATORVASTATIN CALCIUM 40MG TABLET PO SCH (22:47)
[2018-10-02] MEDS: INSULIN GLARGINE UD 100 UNITS/ML SYR SUBCUT SCH (22:51)
[2018-10-03] MEDS: BLOOD SUGAR DIAGNOSTIC STRIP TEST SCH ×4 (06:19→21:37)
[2018-10-03 06:28] LABS: BASOPHILS % 0.5 % (0.0-2.0); EOSINOPHILS % 3.4 % (0.0-5.0); HEMOGLOBIN. 11.5 g/dL (14.0-18.0); LYMPHOCYTES % 17.3 % (20.0-50.0); MEAN CORPUSCULAR VOLUME 83.1 fL (80.0-94.0); MEAN PLATELET VOLUME 8.5 fl (7.4-10.4); MONOCYTES % 9.3 % (2.0-8.0); NEUTROPHILS % 69.5 % (40.0-76.0); PLATELET 256 x1000/uL (130-400); RED CELL DISTRIBUTION WIDTH 14.2 % (11.6-14.6)
[2018-10-03] MEDS: INSULIN LISPRO 100 UNITS/ML SUBCUT SCH ×4 (06:39→22:22)
[2018-10-03 06:46] LABS: CHLORIDE 102 mEq/L (98-107)
[2018-10-03] MEDS: DOCUSATE SODIUM 100MG CAPSULE PO SCH ×2 (08:05→17:03)
[2018-10-03] MEDS: LISINOPRIL 20MG TABLET PO SCH ×2 (08:05→10:04)
[2018-10-03] MEDS: CARVEDILOL 12.5MG TABLET PO SCH ×2 (08:05→21:37)
[2018-10-03] MEDS: FINASTERIDE 5MG TABLET PO SCH (08:05)
[2018-10-03] MEDS: LINAGLIPTIN 5MG TABLET PO SCH (08:05)
[2018-10-03] MEDS: TAMSULOSIN HCL 0.4MG SR CAPSULE PO SCH (08:05)
[2018-10-03] MEDS: ASPIRIN 81MG TABLET PO SCH (08:05)
[2018-10-03] MEDS: METFORMIN HCL 500MG TABLET PO SCH ×2 (08:05→17:03)
[2018-10-03] MEDS: ENOXAPARIN 30MG/0.3ML SYR SUBCUT SCH ×2 (08:06→21:38)
[2018-10-03 08:20] VITALS: BP 141/78
[2018-10-03 20:00] VITALS: BP 154/79
[2018-10-03] MEDS: ATORVASTATIN CALCIUM 40MG TABLET PO SCH (21:37)
[2018-10-03] MEDS: INSULIN GLARGINE UD 100 UNITS/ML SYR SUBCUT SCH (22:23)
[2018-10-04] MEDS: BLOOD SUGAR DIAGNOSTIC STRIP TEST SCH ×4 (06:04→21:31)
[2018-10-04 06:23] LABS: BASOPHILS % 0.5 % (0.0-2.0); EOSINOPHILS % 3.1 % (0.0-5.0); HEMATOCRIT. 34.7 % (42.0-52.0); HEMOGLOBIN. 11.8 g/dL (14.0-18.0); LYMPHOCYTES % 16.5 % (20.0-50.0); MEAN CORPUSCULAR HEMOGLOBIN 28.4 pg (28.0-32.0); MEAN CORPUSCULAR VOLUME 83.4 fL (80.0-94.0); MEAN PLATELET VOLUME 8.2 fl (7.4-10.4); NEUTROPHILS % 71.9 % (40.0-76.0); PLATELET 286 x1000/uL (130-400); RED BLOOD CELL COUNT 4.16 mill/uL (4.7-6.1); RED CELL DISTRIBUTION WIDTH 14.2 % (11.6-14.6)
[2018-10-04 06:25] LABS: CHLORIDE 103 mEq/L (98-107)
[2018-10-04] MEDS: INSULIN LISPRO 100 UNITS/ML SUBCUT SCH ×4 (06:36→21:29)
[2018-10-04] MEDS: LACTULOSE 20G/30ML UDC PO PRN (07:14)
[2018-10-04 08:00] VITALS: BP 149/86
[2018-10-04] MEDS: DOCUSATE SODIUM 100MG CAPSULE PO SCH ×2 (09:00→17:00)
[2018-10-04] MEDS: TAMSULOSIN HCL 0.4MG SR CAPSULE PO SCH (09:54)
[2018-10-04] MEDS: ASPIRIN 81MG TABLET PO SCH (09:54)
[2018-10-04] MEDS: CARVEDILOL 12.5MG TABLET PO SCH ×2 (09:54→21:30)
[2018-10-04] MEDS: LISINOPRIL 20MG TABLET PO SCH (09:55)
[2018-10-04] MEDS: LINAGLIPTIN 5MG TABLET PO SCH (09:55)
[2018-10-04] MEDS: FINASTERIDE 5MG TABLET PO SCH (09:55)
[2018-10-04] MEDS: METFORMIN HCL 500MG TABLET PO SCH ×2 (09:55→17:44)
[2018-10-04] MEDS: ENOXAPARIN 30MG/0.3ML SYR SUBCUT SCH ×2 (09:55→21:31)
[2018-10-04 20:00] VITALS: BP 155/90
[2018-10-04] MEDS: INSULIN GLARGINE UD 100 UNITS/ML SYR SUBCUT SCH (21:21)
[2018-10-04] MEDS: ATORVASTATIN CALCIUM 40MG TABLET PO SCH (21:30)
[2018-10-05] MEDS: BLOOD SUGAR DIAGNOSTIC STRIP TEST SCH ×5 (06:02→22:22)
[2018-10-05 08:00] VITALS: BP 138/72
[2018-10-05] MEDS: ENOXAPARIN 30MG/0.3ML SYR SUBCUT SCH ×2 (08:25→22:21)
[2018-10-05] MEDS: LINAGLIPTIN 5MG TABLET PO SCH (08:26)
[2018-10-05] MEDS: FINASTERIDE 5MG TABLET PO SCH (08:26)
[2018-10-05] MEDS: DOCUSATE SODIUM 100MG CAPSULE PO SCH ×2 (08:26→17:24)
[2018-10-05] MEDS: METFORMIN HCL 500MG TABLET PO SCH ×2 (08:26→17:24)
[2018-10-05] MEDS: ASPIRIN 81MG TABLET PO SCH (08:26)
[2018-10-05] MEDS: CARVEDILOL 12.5MG TABLET PO SCH ×2 (08:27→22:22)
[2018-10-05] MEDS: TAMSULOSIN HCL 0.4MG SR CAPSULE PO SCH (08:27)
[2018-10-05] MEDS: LISINOPRIL 20MG TABLET PO SCH (08:27)
[2018-10-05] MEDS: INSULIN LISPRO 100 UNITS/ML SUBCUT SCH ×4 (08:33→22:25)
[2018-10-05] MEDS ORDERED: HYDROCODONE/ACETAMINOPHEN 5/325MG TABLET PO PRN (14:45)
[2018-10-05 20:00] VITALS: BP 150/82
[2018-10-05] MEDS: ATORVASTATIN CALCIUM 40MG TABLET PO SCH (22:21)
[2018-10-05] MEDS: INSULIN GLARGINE UD 100 UNITS/ML SYR SUBCUT SCH (22:26)
[2018-10-06] MEDS: TRAMADOL 50MG TABLET PO PRN ×2 (05:13→21:34)
[2018-10-06] MEDS: INSULIN LISPRO 100 UNITS/ML SUBCUT SCH ×4 (06:44→21:37)
[2018-10-06 07:10] LABS: BASOPHILS % 0.3 % (0.0-2.0); EOSINOPHILS % 4.3 % (0.0-5.0); HEMATOCRIT. 36.3 % (42.0-52.0); LYMPHOCYTES % 15.9 % (20.0-50.0); MEAN CORPUSCULAR HEMOGLOBIN 27.8 pg (28.0-32.0); MEAN PLATELET VOLUME 8.2 fl (7.4-10.4); MONOCYTES % 8.3 % (2.0-8.0); NEUTROPHILS % 71.2 % (40.0-76.0); PLATELET 318 x1000/uL (130-400); RED BLOOD CELL COUNT 4.33 mill/uL (4.7-6.1); RED CELL DISTRIBUTION WIDTH 14.4 % (11.6-14.6)
[2018-10-06 07:30] LABS: CHLORIDE 103 mEq/L (98-107)
[2018-10-06 08:00] VITALS: BP 153/91
[2018-10-06] MEDS: TAMSULOSIN HCL 0.4MG SR CAPSULE PO SCH (09:04)
[2018-10-06] MEDS: FINASTERIDE 5MG TABLET PO SCH (09:04)
[2018-10-06] MEDS: LISINOPRIL 20MG TABLET PO SCH (09:04)
[2018-10-06] MEDS: LINAGLIPTIN 5MG TABLET PO SCH (09:04)
[2018-10-06] MEDS: CARVEDILOL 12.5MG TABLET PO SCH ×2 (09:04→21:33)
[2018-10-06] MEDS: METFORMIN HCL 500MG TABLET PO SCH ×2 (09:04→16:30)
[2018-10-06] MEDS: ASPIRIN 81MG TABLET PO SCH (09:05)
[2018-10-06] MEDS: DOCUSATE SODIUM 100MG CAPSULE PO SCH ×2 (09:05→16:30)
[2018-10-06] MEDS: ENOXAPARIN 30MG/0.3ML SYR SUBCUT SCH ×2 (09:06→21:34)
[2018-10-06] MEDS: BLOOD SUGAR DIAGNOSTIC STRIP TEST SCH ×3 (12:02→21:02)
[2018-10-06 20:00] VITALS: BP 141/88
[2018-10-06] MEDS: ATORVASTATIN CALCIUM 40MG TABLET PO SCH (21:33)
[2018-10-06] MEDS: INSULIN GLARGINE UD 100 UNITS/ML SYR SUBCUT SCH (21:36)
[2018-10-07] MEDS: BLOOD SUGAR DIAGNOSTIC STRIP TEST SCH ×4 (06:04→21:23)
[2018-10-07] MEDS: INSULIN LISPRO 100 UNITS/ML SUBCUT SCH ×4 (06:16→22:27)
[2018-10-07 08:00] VITALS: BP 148/82
[2018-10-07] MEDS: ENOXAPARIN 30MG/0.3ML SYR SUBCUT SCH ×2 (10:17→22:25)
[2018-10-07] MEDS: LISINOPRIL 20MG TABLET PO SCH (10:18)
[2018-10-07] MEDS: LINAGLIPTIN 5MG TABLET PO SCH (10:18)
[2018-10-07] MEDS: FINASTERIDE 5MG TABLET PO SCH (10:18)
[2018-10-07] MEDS: DOCUSATE SODIUM 100MG CAPSULE PO SCH ×2 (10:18→16:48)
[2018-10-07] MEDS: CARVEDILOL 12.5MG TABLET PO SCH ×2 (10:18→22:29)
[2018-10-07] MEDS: ASPIRIN 81MG TABLET PO SCH (10:18)
[2018-10-07] MEDS: TAMSULOSIN HCL 0.4MG SR CAPSULE PO SCH (10:19)
[2018-10-07] MEDS: METFORMIN HCL 500MG TABLET PO SCH ×2 (10:19→16:48)
[2018-10-07 20:00] VITALS: BP 133/76
[2018-10-07] MEDS: ATORVASTATIN CALCIUM 40MG TABLET PO SCH (22:24)
[2018-10-07] MEDS: TRAMADOL 50MG TABLET PO PRN (22:25)
[2018-10-07] MEDS: INSULIN GLARGINE UD 100 UNITS/ML SYR SUBCUT SCH (22:26)
[2018-10-08] MEDS: BLOOD SUGAR DIAGNOSTIC STRIP TEST SCH ×4 (05:43→21:00)
[2018-10-08] MEDS: INSULIN LISPRO 100 UNITS/ML SUBCUT SCH ×5 (05:44→22:21)
[2018-10-08 05:50] LABS: BASOPHILS % 0.9 % (0.0-2.0); EOSINOPHILS % 4.1 % (0.0-5.0); HEMATOCRIT. 32.5 % (42.0-52.0); HEMOGLOBIN. 11.2 g/dL (14.0-18.0); LYMPHOCYTES % 20.4 % (20.0-50.0); MEAN CORPUSCULAR HEMOGLOBIN 28.5 pg (28.0-32.0); MEAN CORPUSCULAR VOLUME 82.9 fL (80.0-94.0); MEAN PLATELET VOLUME 7.6 fl (7.4-10.4); NEUTROPHILS % 67.6 % (40.0-76.0); PLATELET 297 x1000/uL (130-400); RED BLOOD CELL COUNT 3.92 mill/uL (4.7-6.1); RED CELL DISTRIBUTION WIDTH 14.3 % (11.6-14.6)
[2018-10-08 06:54] LABS: CHLORIDE 105 mEq/L (98-107)
[2018-10-08 08:00] VITALS: BP 154/92
[2018-10-08] MEDS: LISINOPRIL 20MG TABLET PO SCH (10:04)
[2018-10-08] MEDS: DOCUSATE SODIUM 100MG CAPSULE PO SCH ×2 (10:05→17:10)
[2018-10-08] MEDS: METFORMIN HCL 500MG TABLET PO SCH ×2 (10:05→17:09)
[2018-10-08] MEDS: TAMSULOSIN HCL 0.4MG SR CAPSULE PO SCH (10:05)
[2018-10-08] MEDS: ASPIRIN 81MG TABLET PO SCH (10:05)
[2018-10-08] MEDS: FINASTERIDE 5MG TABLET PO SCH (10:05)
[2018-10-08] MEDS: CARVEDILOL 12.5MG TABLET PO SCH ×2 (10:05→22:13)
[2018-10-08] MEDS: LINAGLIPTIN 5MG TABLET PO SCH (10:05)
[2018-10-08] MEDS: ENOXAPARIN 30MG/0.3ML SYR SUBCUT SCH ×2 (10:06→22:16)
[2018-10-08] MEDS: BISACODYL 5MG TABLET PO PRN (11:59)
[2018-10-08 20:00] VITALS: BP 130/81
[2018-10-08] MEDS: ATORVASTATIN CALCIUM 40MG TABLET PO SCH (22:10)
[2018-10-08] MEDS: TRAMADOL 50MG TABLET PO PRN (22:15)
[2018-10-08] MEDS: INSULIN GLARGINE UD 100 UNITS/ML SYR SUBCUT SCH (22:20)
[2018-10-09 05:23] LABS: BASOPHILS % 0.4 % (0.0-2.0); EOSINOPHILS % 4.4 % (0.0-5.0); HEMATOCRIT. 32.3 % (42.0-52.0); LYMPHOCYTES % 18.9 % (20.0-50.0); MEAN CORPUSCULAR HEMOGLOBIN 28.4 pg (28.0-32.0); MEAN CORPUSCULAR VOLUME 83.2 fL (80.0-94.0); MEAN PLATELET VOLUME 7.6 fl (7.4-10.4); MONOCYTES % 8.6 % (2.0-8.0); NEUTROPHILS % 67.7 % (40.0-76.0); PLATELET 302 x1000/uL (130-400); RED BLOOD CELL COUNT 3.87 mill/uL (4.7-6.1); RED CELL DISTRIBUTION WIDTH 14.2 % (11.6-14.6)
[2018-10-09] MEDS: BLOOD SUGAR DIAGNOSTIC STRIP TEST SCH ×4 (06:21→21:28)
[2018-10-09] MEDS: INSULIN LISPRO 100 UNITS/ML SUBCUT SCH ×4 (06:24→21:28)
[2018-10-09 07:03] LABS: CHLORIDE 105 mEq/L (98-107)
[2018-10-09 08:00] VITALS: BP 163/84
[2018-10-09] MEDS: ASPIRIN 81MG TABLET PO SCH (08:24)
[2018-10-09] MEDS: LISINOPRIL 20MG TABLET PO SCH (08:24)
[2018-10-09] MEDS: ENOXAPARIN 30MG/0.3ML SYR SUBCUT SCH ×2 (08:24→21:28)
[2018-10-09] MEDS: DOCUSATE SODIUM 100MG CAPSULE PO SCH ×2 (08:24→17:29)
[2018-10-09] MEDS: FINASTERIDE 5MG TABLET PO SCH (08:25)
[2018-10-09] MEDS: TAMSULOSIN HCL 0.4MG SR CAPSULE PO SCH (08:25)
[2018-10-09] MEDS: LINAGLIPTIN 5MG TABLET PO SCH (08:25)
[2018-10-09] MEDS: CARVEDILOL 12.5MG TABLET PO SCH ×2 (08:25→21:27)
[2018-10-09] MEDS: METFORMIN HCL 500MG TABLET PO SCH ×2 (08:25→17:29)
[2018-10-09 20:00] VITALS: BP 150/76
[2018-10-09] MEDS: INSULIN GLARGINE UD 100 UNITS/ML SYR SUBCUT SCH (21:27)
[2018-10-09] MEDS: ATORVASTATIN CALCIUM 40MG TABLET PO SCH (21:27)
[2018-10-10 05:00] VITALS: BP 189/94
[2018-10-10] MEDS: BLOOD SUGAR DIAGNOSTIC STRIP TEST SCH ×4 (05:20→21:50)
[2018-10-10 06:21] VITALS: BP 147/84
[2018-10-10] MEDS: CARVEDILOL 12.5MG TABLET PO SCH ×2 (08:42→21:50)
[2018-10-10] MEDS: ENOXAPARIN 30MG/0.3ML SYR SUBCUT SCH ×2 (08:42→21:50)
[2018-10-10] MEDS: TAMSULOSIN HCL 0.4MG SR CAPSULE PO SCH (08:43)
[2018-10-10] MEDS: FINASTERIDE 5MG TABLET PO SCH (08:43)
[2018-10-10] MEDS: METFORMIN HCL 500MG TABLET PO SCH ×2 (08:43→18:00)
[2018-10-10] MEDS: LISINOPRIL 20MG TABLET PO SCH (08:43)
[2018-10-10] MEDS: DOCUSATE SODIUM 100MG CAPSULE PO SCH ×2 (08:43→18:00)
[2018-10-10] MEDS: LINAGLIPTIN 5MG TABLET PO SCH (08:43)
[2018-10-10] MEDS: ASPIRIN 81MG TABLET PO SCH (09:00)
[2018-10-10] MEDS: INSULIN LISPRO 100 UNITS/ML SUBCUT SCH ×4 (09:00→22:13)
[2018-10-10 20:00] VITALS: BP 150/88
[2018-10-10] MEDS: ATORVASTATIN CALCIUM 40MG TABLET PO SCH (21:49)
[2018-10-10] MEDS: INSULIN GLARGINE UD 100 UNITS/ML SYR SUBCUT SCH (22:13)
[2018-10-11] MEDS: BLOOD SUGAR DIAGNOSTIC STRIP TEST SCH ×4 (07:13→21:18)
[2018-10-11] MEDS: INSULIN LISPRO 100 UNITS/ML SUBCUT SCH ×4 (07:16→22:05)
[2018-10-11 08:02] VITALS: BP 148/89
[2018-10-11] MEDS: METFORMIN HCL 500MG TABLET PO SCH ×2 (08:53→17:21)
[2018-10-11] MEDS: DOCUSATE SODIUM 100MG CAPSULE PO SCH ×2 (08:54→17:21)
[2018-10-11] MEDS: TAMSULOSIN HCL 0.4MG SR CAPSULE PO SCH (08:54)
[2018-10-11] MEDS: LISINOPRIL 20MG TABLET PO SCH (08:54)
[2018-10-11] MEDS: ASPIRIN 81MG TABLET PO SCH (08:54)
[2018-10-11] MEDS: CARVEDILOL 12.5MG TABLET PO SCH ×2 (08:55→22:02)
[2018-10-11] MEDS: ENOXAPARIN 30MG/0.3ML SYR SUBCUT SCH ×2 (08:55→22:06)
[2018-10-11] MEDS: FINASTERIDE 5MG TABLET PO SCH (08:56)
[2018-10-11] MEDS: LINAGLIPTIN 5MG TABLET PO SCH (08:56)
[2018-10-11 20:00] VITALS: BP 139/85
[2018-10-11] MEDS: ATORVASTATIN CALCIUM 40MG TABLET PO SCH (22:01)
[2018-10-11] MEDS: INSULIN GLARGINE UD 100 UNITS/ML SYR SUBCUT SCH (22:04)
[2018-10-12] MEDS: BLOOD SUGAR DIAGNOSTIC STRIP TEST SCH ×4 (05:59→21:00)
[2018-10-12] MEDS: INSULIN LISPRO 100 UNITS/ML SUBCUT SCH ×4 (06:23→22:30)
[2018-10-12 08:02] VITALS: BP 164/89
[2018-10-12] MEDS: LINAGLIPTIN 5MG TABLET PO SCH (10:17)
[2018-10-12] MEDS: ASPIRIN 81MG TABLET PO SCH (10:17)
[2018-10-12] MEDS: FINASTERIDE 5MG TABLET PO SCH (10:17)
[2018-10-12] MEDS: TAMSULOSIN HCL 0.4MG SR CAPSULE PO SCH (10:17)
[2018-10-12] MEDS: METFORMIN HCL 500MG TABLET PO SCH ×2 (10:17→16:37)
[2018-10-12] MEDS: DOCUSATE SODIUM 100MG CAPSULE PO SCH ×2 (10:17→16:37)
[2018-10-12] MEDS: LISINOPRIL 20MG TABLET PO SCH (10:18)
[2018-10-12] MEDS: CARVEDILOL 12.5MG TABLET PO SCH ×2 (10:18→22:30)
[2018-10-12] MEDS: ENOXAPARIN 30MG/0.3ML SYR SUBCUT SCH ×2 (10:19→22:26)
[2018-10-12 20:00] VITALS: BP 160/91
[2018-10-12] MEDS: ATORVASTATIN CALCIUM 40MG TABLET PO SCH (22:23)
[2018-10-12] MEDS: INSULIN GLARGINE UD 100 UNITS/ML SYR SUBCUT SCH (22:29)
[2018-10-13] MEDS: BLOOD SUGAR DIAGNOSTIC STRIP TEST SCH ×4 (06:30→21:37)
[2018-10-13 07:26] LABS: BASOPHILS % 0.4 % (0.0-2.0); EOSINOPHILS % 3.8 % (0.0-5.0); HEMATOCRIT. 35.9 % (42.0-52.0); HEMOGLOBIN. 12.1 g/dL (14.0-18.0); LYMPHOCYTES % 16.9 % (20.0-50.0); MEAN CORPUSCULAR HEMOGLOBIN 28.3 pg (28.0-32.0); MEAN CORPUSCULAR VOLUME 84.1 fL (80.0-94.0); MONOCYTES % 6.2 % (2.0-8.0); NEUTROPHILS % 72.7 % (40.0-76.0); PLATELET 337 x1000/uL (130-400); RED BLOOD CELL COUNT 4.27 mill/uL (4.7-6.1); RED CELL DISTRIBUTION WIDTH 14.4 % (11.6-14.6)
[2018-10-13 07:51] LABS: CHLORIDE 105 mEq/L (98-107)
[2018-10-13 08:47] VITALS: BP 146/89
[2018-10-13] MEDS: DOCUSATE SODIUM 100MG CAPSULE PO SCH ×2 (09:03→17:00)
[2018-10-13] MEDS: LISINOPRIL 20MG TABLET PO SCH (09:03)
[2018-10-13] MEDS: METFORMIN HCL 500MG TABLET PO SCH ×2 (09:04→17:18)
[2018-10-13] MEDS: LINAGLIPTIN 5MG TABLET PO SCH (09:04)
[2018-10-13] MEDS: FINASTERIDE 5MG TABLET PO SCH (09:04)
[2018-10-13] MEDS: ENOXAPARIN 30MG/0.3ML SYR SUBCUT SCH ×2 (09:04→20:56)
[2018-10-13] MEDS: TAMSULOSIN HCL 0.4MG SR CAPSULE PO SCH (09:04)
[2018-10-13] MEDS: ASPIRIN 81MG TABLET PO SCH (09:04)
[2018-10-13] MEDS: INSULIN LISPRO 100 UNITS/ML SUBCUT SCH ×4 (09:05→21:40)
[2018-10-13] MEDS: CARVEDILOL 12.5MG TABLET PO SCH ×2 (09:07→20:53)
[2018-10-13 20:00] VITALS: BP 154/80
[2018-10-13] MEDS: ATORVASTATIN CALCIUM 40MG TABLET PO SCH (20:53)
[2018-10-13] MEDS: INSULIN GLARGINE UD 100 UNITS/ML SYR SUBCUT SCH (21:51)
[2018-10-14] MEDS: BLOOD SUGAR DIAGNOSTIC STRIP TEST SCH ×4 (06:03→21:00)
[2018-10-14] MEDS: INSULIN LISPRO 100 UNITS/ML SUBCUT SCH ×4 (06:18→21:00)
[2018-10-14 08:00] VITALS: BP 142/82
[2018-10-14] MEDS: METFORMIN HCL 500MG TABLET PO SCH ×2 (09:33→17:34)
[2018-10-14] MEDS: ASPIRIN 81MG TABLET PO SCH (09:33)
[2018-10-14] MEDS: FINASTERIDE 5MG TABLET PO SCH (09:33)
[2018-10-14] MEDS: DOCUSATE SODIUM 100MG CAPSULE PO SCH ×2 (09:33→17:34)
[2018-10-14] MEDS: LINAGLIPTIN 5MG TABLET PO SCH (09:33)
[2018-10-14] MEDS: ENOXAPARIN 30MG/0.3ML SYR SUBCUT SCH ×2 (09:34→22:15)
[2018-10-14] MEDS: LISINOPRIL 20MG TABLET PO SCH (09:34)
[2018-10-14] MEDS: TAMSULOSIN HCL 0.4MG SR CAPSULE PO SCH (09:34)
[2018-10-14] MEDS: CARVEDILOL 12.5MG TABLET PO SCH ×2 (09:34→22:14)
[2018-10-14] MEDS: BISACODYL 5MG TABLET PO PRN (17:34)
[2018-10-14 20:00] VITALS: BP 151/93
[2018-10-14] MEDS: ATORVASTATIN CALCIUM 40MG TABLET PO SCH (22:18)
[2018-10-14] MEDS: INSULIN GLARGINE UD 100 UNITS/ML SYR SUBCUT SCH (22:25)
[2018-10-15] MEDS: BLOOD SUGAR DIAGNOSTIC STRIP TEST SCH ×4 (06:00→21:06)
[2018-10-15] MEDS: INSULIN LISPRO 100 UNITS/ML SUBCUT SCH ×4 (06:22→21:08)
[2018-10-15 08:00] VITALS: BP 153/86
[2018-10-15 08:23] LABS: BASOPHILS % 0.5 % (0.0-2.0); EOSINOPHILS % 3.5 % (0.0-5.0); HEMATOCRIT. 36.8 % (42.0-52.0); HEMOGLOBIN. 12.1 g/dL (14.0-18.0); LYMPHOCYTES % 16.3 % (20.0-50.0); MEAN CORPUSCULAR VOLUME 85.4 fL (80.0-94.0); MEAN PLATELET VOLUME 7.9 fl (7.4-10.4); MONOCYTES % 6.9 % (2.0-8.0); NEUTROPHILS % 72.8 % (40.0-76.0); PLATELET 303 x1000/uL (130-400); RED BLOOD CELL COUNT 4.32 mill/uL (4.7-6.1); RED CELL DISTRIBUTION WIDTH 14.4 % (11.6-14.6)
[2018-10-15 08:44] LABS: CHLORIDE 107 mEq/L (98-107)
[2018-10-15] MEDS: DOCUSATE SODIUM 100MG CAPSULE PO SCH ×2 (09:00→16:51)
[2018-10-15] MEDS: TAMSULOSIN HCL 0.4MG SR CAPSULE PO SCH (10:08)
[2018-10-15] MEDS: ASPIRIN 81MG TABLET PO SCH (10:08)
[2018-10-15] MEDS: CARVEDILOL 12.5MG TABLET PO SCH ×2 (10:08→21:06)
[2018-10-15] MEDS: FINASTERIDE 5MG TABLET PO SCH (10:08)
[2018-10-15] MEDS: LINAGLIPTIN 5MG TABLET PO SCH (10:09)
[2018-10-15] MEDS: METFORMIN HCL 500MG TABLET PO SCH ×2 (10:09→16:51)
[2018-10-15] MEDS: AMLODIPINE 5MG TABLET PO SCH (10:09)
[2018-10-15] MEDS: LISINOPRIL 20MG TABLET PO SCH (10:09)
[2018-10-15] MEDS: ENOXAPARIN 30MG/0.3ML SYR SUBCUT SCH ×2 (10:10→21:07)
[2018-10-15 20:00] VITALS: BP 146/88
[2018-10-15] MEDS: ATORVASTATIN CALCIUM 40MG TABLET PO SCH (21:06)
[2018-10-15] MEDS: INSULIN GLARGINE UD 100 UNITS/ML SYR SUBCUT SCH (21:09)
[2018-10-16] MEDS: BLOOD SUGAR DIAGNOSTIC STRIP TEST SCH ×4 (06:32→21:44)
[2018-10-16] MEDS: INSULIN LISPRO 100 UNITS/ML SUBCUT SCH ×4 (06:33→21:31)
[2018-10-16 08:00] VITALS: BP 142/89
[2018-10-16] MEDS: ENOXAPARIN 30MG/0.3ML SYR SUBCUT SCH ×2 (09:41→21:44)
[2018-10-16] MEDS: CARVEDILOL 12.5MG TABLET PO SCH ×2 (09:42→21:44)
[2018-10-16] MEDS: FINASTERIDE 5MG TABLET PO SCH (09:42)
[2018-10-16] MEDS: DOCUSATE SODIUM 100MG CAPSULE PO SCH ×2 (09:42→16:24)
[2018-10-16] MEDS: BISACODYL 5MG TABLET PO PRN (09:42)
[2018-10-16] MEDS: LINAGLIPTIN 5MG TABLET PO SCH (09:43)
[2018-10-16] MEDS: METFORMIN HCL 500MG TABLET PO SCH ×2 (09:43→16:24)
[2018-10-16] MEDS: LISINOPRIL 20MG TABLET PO SCH (09:43)
[2018-10-16] MEDS: TAMSULOSIN HCL 0.4MG SR CAPSULE PO SCH (09:43)
[2018-10-16] MEDS: ASPIRIN 81MG TABLET PO SCH (09:44)
[2018-10-16] MEDS: AMLODIPINE 5MG TABLET PO SCH (09:44)
[2018-10-16 20:00] VITALS: BP 150/74
[2018-10-16] MEDS: INSULIN GLARGINE UD 100 UNITS/ML SYR SUBCUT SCH (21:32)
[2018-10-16] MEDS: ATORVASTATIN CALCIUM 40MG TABLET PO SCH (21:43)
[2018-10-17] MEDS: ACETAMINOPHEN 325MG TABLET PO PRN (03:27)
[2018-10-17] MEDS: INSULIN LISPRO 100 UNITS/ML SUBCUT SCH ×4 (05:57→21:00)
[2018-10-17] MEDS: BLOOD SUGAR DIAGNOSTIC STRIP TEST SCH ×4 (05:57→21:34)
[2018-10-17 08:34] VITALS: BP 149/86
[2018-10-17] MEDS: METFORMIN HCL 500MG TABLET PO SCH ×2 (09:24→17:03)
[2018-10-17] MEDS: DOCUSATE SODIUM 100MG CAPSULE PO SCH ×2 (09:25→17:03)
[2018-10-17] MEDS: CARVEDILOL 12.5MG TABLET PO SCH ×2 (09:25→21:30)
[2018-10-17] MEDS: LINAGLIPTIN 5MG TABLET PO SCH (09:25)
[2018-10-17] MEDS: AMLODIPINE 5MG TABLET PO SCH (09:25)
[2018-10-17] MEDS: FINASTERIDE 5MG TABLET PO SCH (09:26)
[2018-10-17] MEDS: TAMSULOSIN HCL 0.4MG SR CAPSULE PO SCH (09:26)
[2018-10-17] MEDS: ASPIRIN 81MG TABLET PO SCH (09:26)
[2018-10-17] MEDS: LISINOPRIL 20MG TABLET PO SCH (09:26)
[2018-10-17] MEDS: ENOXAPARIN 30MG/0.3ML SYR SUBCUT SCH ×2 (09:27→21:31)
[2018-10-17 20:00] VITALS: BP 136/72
[2018-10-17] MEDS: ATORVASTATIN CALCIUM 40MG TABLET PO SCH (21:30)
[2018-10-17] MEDS: INSULIN GLARGINE UD 100 UNITS/ML SYR SUBCUT SCH (21:32)
[2018-10-17] MEDS: SERTRALINE HCL 50MG TABLET PO SCH (21:38)
[2018-10-18] MEDS: BLOOD SUGAR DIAGNOSTIC STRIP TEST SCH ×4 (06:30→21:00)
[2018-10-18] MEDS: INSULIN LISPRO 100 UNITS/ML SUBCUT SCH ×4 (07:56→21:00)
[2018-10-18 08:00] VITALS: BP 148/86
[2018-10-18] MEDS: DOCUSATE SODIUM 100MG CAPSULE PO SCH ×2 (10:16→17:51)
[2018-10-18] MEDS: FINASTERIDE 5MG TABLET PO SCH (10:16)
[2018-10-18] MEDS: TAMSULOSIN HCL 0.4MG SR CAPSULE PO SCH (10:17)
[2018-10-18] MEDS: AMLODIPINE 5MG TABLET PO SCH (10:17)
[2018-10-18] MEDS: CARVEDILOL 12.5MG TABLET PO SCH ×2 (10:17→22:24)
[2018-10-18] MEDS: METFORMIN HCL 500MG TABLET PO SCH ×2 (10:17→17:51)
[2018-10-18] MEDS: ASPIRIN 81MG TABLET PO SCH (10:17)
[2018-10-18] MEDS: LISINOPRIL 20MG TABLET PO SCH (10:30)
[2018-10-18] MEDS: ENOXAPARIN 30MG/0.3ML SYR SUBCUT SCH ×2 (10:31→22:25)
[2018-10-18] MEDS: LINAGLIPTIN 5MG TABLET PO SCH (10:31)
[2018-10-18] MEDS: SERTRALINE HCL 50MG TABLET PO SCH (10:31)
[2018-10-18 20:00] VITALS: BP 136/69
[2018-10-18] MEDS: ATORVASTATIN CALCIUM 40MG TABLET PO SCH (22:23)
[2018-10-18] MEDS: INSULIN GLARGINE UD 100 UNITS/ML SYR SUBCUT SCH (22:26)
[2018-10-19] MEDS: INSULIN LISPRO 100 UNITS/ML SUBCUT SCH ×4 (06:32→21:00)
[2018-10-19] MEDS: BLOOD SUGAR DIAGNOSTIC STRIP TEST SCH ×4 (06:32→21:05)
[2018-10-19 08:00] VITALS: BP 154/91
[2018-10-19] MEDS: ENOXAPARIN 30MG/0.3ML SYR SUBCUT SCH ×2 (09:15→21:06)
[2018-10-19] MEDS: CARVEDILOL 12.5MG TABLET PO SCH ×2 (09:18→21:05)
[2018-10-19] MEDS: AMLODIPINE 5MG TABLET PO SCH (09:18)
[2018-10-19] MEDS: LISINOPRIL 20MG TABLET PO SCH (09:18)
[2018-10-19] MEDS: DOCUSATE SODIUM 100MG CAPSULE PO SCH ×2 (09:18→17:10)
[2018-10-19] MEDS: ASPIRIN 81MG TABLET PO SCH (09:19)
[2018-10-19] MEDS: SERTRALINE HCL 50MG TABLET PO SCH (09:19)
[2018-10-19] MEDS: LINAGLIPTIN 5MG TABLET PO SCH (09:19)
[2018-10-19] MEDS: FINASTERIDE 5MG TABLET PO SCH (09:19)
[2018-10-19] MEDS: TAMSULOSIN HCL 0.4MG SR CAPSULE PO SCH (09:19)
[2018-10-19] MEDS: METFORMIN HCL 500MG TABLET PO SCH ×2 (09:19→17:10)
[2018-10-19] MEDS: ATORVASTATIN CALCIUM 40MG TABLET PO SCH (21:05)
[2018-10-19] MEDS: INSULIN GLARGINE UD 100 UNITS/ML SYR SUBCUT SCH (21:16)
[2018-10-19 21:29] VITALS: BP 155/83
[2018-10-20] MEDS: BLOOD SUGAR DIAGNOSTIC STRIP TEST SCH ×4 (05:55→21:33)
[2018-10-20] MEDS: INSULIN LISPRO 100 UNITS/ML SUBCUT SCH ×4 (06:03→21:00)
[2018-10-20 08:04] VITALS: BP 161/99
[2018-10-20] MEDS: CARVEDILOL 12.5MG TABLET PO SCH ×3 (08:28→21:22)
[2018-10-20] MEDS: AMLODIPINE 5MG TABLET PO SCH ×2 (08:29→08:57)
[2018-10-20] MEDS: LISINOPRIL 20MG TABLET PO SCH ×2 (08:30→08:57)
[2018-10-20] MEDS: ASPIRIN 81MG TABLET PO SCH (08:56)
[2018-10-20] MEDS: ENOXAPARIN 30MG/0.3ML SYR SUBCUT SCH ×2 (08:56→21:22)
[2018-10-20] MEDS: TAMSULOSIN HCL 0.4MG SR CAPSULE PO SCH (08:56)
[2018-10-20] MEDS: FINASTERIDE 5MG TABLET PO SCH (08:56)
[2018-10-20] MEDS: METFORMIN HCL 500MG TABLET PO SCH ×2 (08:56→16:45)
[2018-10-20] MEDS: SERTRALINE HCL 50MG TABLET PO SCH (08:57)
[2018-10-20] MEDS: LINAGLIPTIN 5MG TABLET PO SCH (08:57)
[2018-10-20] MEDS: DOCUSATE SODIUM 100MG CAPSULE PO SCH ×2 (08:57→16:45)
[2018-10-20 11:08] LABS: BASOPHILS % 0.3 % (0.0-2.0); HEMATOCRIT. 34.2 % (42.0-52.0); HEMOGLOBIN. 11.4 g/dL (14.0-18.0); LYMPHOCYTES % 13.6 % (20.0-50.0); MEAN CORPUSCULAR HEMOGLOBIN 28.2 pg (28.0-32.0); MEAN CORPUSCULAR VOLUME 84.9 fL (80.0-94.0); MEAN PLATELET VOLUME 8.1 fl (7.4-10.4); MONOCYTES % 8.4 % (2.0-8.0); NEUTROPHILS % 74.7 % (40.0-76.0); PLATELET 237 x1000/uL (130-400); RED BLOOD CELL COUNT 4.03 mill/uL (4.7-6.1); RED CELL DISTRIBUTION WIDTH 14.5 % (11.6-14.6)
[2018-10-20 11:23] LABS: CHLORIDE 103 mEq/L (98-107)
[2018-10-20 20:00] VITALS: BP 153/89
[2018-10-20] MEDS: ATORVASTATIN CALCIUM 40MG TABLET PO SCH (21:21)
[2018-10-20] MEDS: INSULIN GLARGINE UD 100 UNITS/ML SYR SUBCUT SCH (21:27)
[2018-10-21] MEDS: ACETAMINOPHEN 325MG TABLET PO PRN (02:12)
[2018-10-21] MEDS: BISACODYL 5MG TABLET PO PRN (06:24)
[2018-10-21] MEDS: BLOOD SUGAR DIAGNOSTIC STRIP TEST SCH ×4 (06:42→21:28)
[2018-10-21] MEDS: INSULIN LISPRO 100 UNITS/ML SUBCUT SCH ×4 (07:30→21:00)
[2018-10-21 08:00] VITALS: BP 137/80
[2018-10-21] MEDS: TAMSULOSIN HCL 0.4MG SR CAPSULE PO SCH (08:12)
[2018-10-21] MEDS: LISINOPRIL 20MG TABLET PO SCH (08:13)
[2018-10-21] MEDS: METFORMIN HCL 500MG TABLET PO SCH ×2 (08:13→16:19)
[2018-10-21] MEDS: FINASTERIDE 5MG TABLET PO SCH (08:13)
[2018-10-21] MEDS: DOCUSATE SODIUM 100MG CAPSULE PO SCH ×2 (08:13→16:19)
[2018-10-21] MEDS: LINAGLIPTIN 5MG TABLET PO SCH (08:13)
[2018-10-21] MEDS: SERTRALINE HCL 50MG TABLET PO SCH (08:13)
[2018-10-21] MEDS: CARVEDILOL 12.5MG TABLET PO SCH ×2 (08:13→21:27)
[2018-10-21] MEDS: ASPIRIN 81MG TABLET PO SCH (08:13)
[2018-10-21] MEDS: AMLODIPINE 5MG TABLET PO SCH (08:13)
[2018-10-21] MEDS: ENOXAPARIN 30MG/0.3ML SYR SUBCUT SCH ×2 (08:14→21:21)
[2018-10-21 20:00] VITALS: BP 157/85
[2018-10-21] MEDS: ATORVASTATIN CALCIUM 40MG TABLET PO SCH (21:21)
[2018-10-21] MEDS: INSULIN GLARGINE UD 100 UNITS/ML SYR SUBCUT SCH (21:33)
[2018-10-22] MEDS: BLOOD SUGAR DIAGNOSTIC STRIP TEST SCH ×2 (05:47→11:15)
[2018-10-22] MEDS: INSULIN LISPRO 100 UNITS/ML SUBCUT SCH ×2 (05:47→13:00)
[2018-10-22 08:00] VITALS: BP 113/53
[2018-10-22] MEDS: ENOXAPARIN 30MG/0.3ML SYR SUBCUT SCH (09:52)
[2018-10-22] MEDS: TAMSULOSIN HCL 0.4MG SR CAPSULE PO SCH (09:56)
[2018-10-22] MEDS: METFORMIN HCL 500MG TABLET PO SCH (09:57)
[2018-10-22] MEDS: LISINOPRIL 20MG TABLET PO SCH (09:57)
[2018-10-22] MEDS: LINAGLIPTIN 5MG TABLET PO SCH (09:57)
[2018-10-22] MEDS: AMLODIPINE 5MG TABLET PO SCH (09:57)
[2018-10-22] MEDS: SERTRALINE HCL 50MG TABLET PO SCH (09:58)
[2018-10-22] MEDS: CARVEDILOL 12.5MG TABLET PO SCH (09:58)
[2018-10-22] MEDS: DOCUSATE SODIUM 100MG CAPSULE PO SCH (09:58)
[2018-10-22] MEDS: ASPIRIN 81MG TABLET PO SCH (09:58)
[2018-10-22] MEDS: FINASTERIDE 5MG TABLET PO SCH (09:58)
[2018-10-22] MEDS: ACETAMINOPHEN 325MG TABLET PO PRN (13:20)
[2018-10-22 14:55] VITALS: BP 146/80
== END 2018-10-22 17:32 | disposition home health service (06) | DRG 56 ==
PROVIDERS: ADMIT Psychiatry & Neurology Neurology; ATTEND Internal Medicine Nephrology
DX: I69.351 Hemiplegia and hemiparesis following cerebral infarction affecting right dominant side (principal); I63.9 Cerebral infarction, unspecified; R26.89 Other abnormalities of gait and mobility; D64.9 Anemia, unspecified; E11.9 Type 2 diabetes mellitus without complications; E78.5 Hyperlipidemia, unspecified; G89.29 Other chronic pain; I10 Essential (primary) hypertension; I25.10 Atherosclerotic heart disease of native coronary artery without angina pectoris; F01.50 Vascular dementia, unspecified severity, without behavioral disturbance, psychotic disturbance, mood disturbance, and anxiety; F32.9 Major depressive disorder, single episode, unspecified; F41.9 Anxiety disorder, unspecified; M54.2 Cervicalgia; Z95.810 Presence of automatic (implantable) cardiac defibrillator; Z82.49 Family history of ischemic heart disease and other diseases of the circulatory system; Z83.3 Family history of diabetes mellitus; Z79.84 Long term (current) use of oral hypoglycemic drugs; Z79.899 Other long term (current) drug therapy
CPT/HCPCS: 36415; 80048; 82962; 92523; 92610; 93970; 97110; 97112; 97116; 97150; 97163; 97166; 97530; 97535; 97542; A4565; C1893; J1650; J1815

== ENCOUNTER 2019-03-06 14:49 | Emergency (ER) | payer MEDICARE, OTHER ==
[~2019-03-06] VITALS: Ht 177.8 cm; Wt 89.0 kg
[2019-03-06 18:10] LABS: BASOPHILS % 0.6 % (0.0-2.0); EOSINOPHILS % 5.9 % (0.0-5.0); HEMATOCRIT. 38.1 % (42.0-52.0); HEMOGLOBIN. 12.6 g/dL (14.0-18.0); LYMPHOCYTES % 28.6 % (20.0-50.0); MEAN CORPUSCULAR HEMOGLOBIN 27.7 pg (28.0-32.0); MEAN CORPUSCULAR VOLUME 83.7 fL (80.0-94.0); MEAN PLATELET VOLUME 8.4 fl (7.4-10.4); MONOCYTES % 8.7 % (2.0-8.0); NEUTROPHILS % 56.2 % (40.0-76.0); PLATELET 192 x1000/uL (130-400); RED BLOOD CELL COUNT 4.55 mill/uL (4.7-6.1); RED CELL DISTRIBUTION WIDTH 15.1 % (11.6-14.6)
[2019-03-06 18:12] LABS: CHLORIDE 106 mEq/L (98-107)
[2019-03-06 18:13] LABS: INR 1.1
[2019-03-06] MEDS ORDERED: SODIUM CHLORIDE 0.9% 1,000 ML IV ONE (18:14)
[2019-03-06 20:01] LABS: CLARITY URINE CLEAR (CLEAR); COLOR URINE YELLOW (YELLOW); KETONES URINE NEGATIVE (NEGATIVE); LEUKOCYTE ESTERASE URINE NEGATIVE (NEGATIVE); NITRITE URINE NEGATIVE (NEGATIVE); OCCULT BLOOD URINE TRACE (NEGATIVE); PROTEIN URINE TRACE (NEGATIVE); SPECIFIC GRAVITY URINE 1.014 (1.005-1.030); UROBILINOGEN URINE 0.2 E.U./dL (0.2-1.0)
[2019-03-06 22:16] VITALS: BP 150/73
== END 2019-03-06 22:16 | disposition home or self-care (01) ==
LOC: ER 14:49
DX: N40.1 Benign prostatic hyperplasia with lower urinary tract symptoms (principal); R33.8 Other retention of urine
CPT/HCPCS: 36415; 51702; 80053; 81003; 83690; 85025; 85610; 87086; 99284; J7030; A4315

== ENCOUNTER 2019-03-11 15:43 | Emergency (ER) | payer MEDICARE, OTHER ==
[~2019-03-11] VITALS: Ht 177.8 cm; Wt 100.0 kg
[2019-03-11 22:53] LABS: CLARITY URINE CLOUDY (CLEAR); COLOR URINE YELLOW (YELLOW); KETONES URINE NEGATIVE (NEGATIVE); LEUKOCYTE ESTERASE URINE 1+ (NEGATIVE); NITRITE URINE NEGATIVE (NEGATIVE); OCCULT BLOOD URINE 3+ (NEGATIVE); PH URINE 5.5 (4.5-8.0); PROTEIN URINE 3+ (NEGATIVE)
[2019-03-11] MEDS ORDERED: NITROFURANTOIN 100MG M/M CAPSULE PO ONE (23:00)
[2019-03-11 23:35] VITALS: BP 163/80
== END 2019-03-11 23:39 | disposition home or self-care (01) ==
LOC: ER 16:16
DX: N39.0 Urinary tract infection, site not specified (principal); E11.9 Type 2 diabetes mellitus without complications; I10 Essential (primary) hypertension; Z79.899 Other long term (current) drug therapy; Z86.73 Personal history of transient ischemic attack (TIA), and cerebral infarction without residual deficits; Z90.49 Acquired absence of other specified parts of digestive tract
CPT/HCPCS: 51702; 81003; 87077; 87186; 99284; A4315

== ENCOUNTER 2019-04-25 10:31 | Inpatient (IN) | payer MEDICARE, OTHER ==
[~2019-04-25] VITALS: Ht 154.9 cm; Wt 79.8 kg
[2019-04-25 12:37] LABS: BASOPHILS % 0.8 % (0.0-2.0); EOSINOPHILS % 7.3 % (0.0-5.0); HEMATOCRIT. 37.1 % (42.0-52.0); HEMOGLOBIN. 12.3 g/dL (14.0-18.0); LYMPHOCYTES % 18.7 % (20.0-50.0); MEAN CORPUSCULAR HEMOGLOBIN 28.3 pg (28.0-32.0); MEAN CORPUSCULAR VOLUME 85.3 fL (80.0-94.0); MEAN PLATELET VOLUME 8.4 fl (7.4-10.4); MONOCYTES % 6.5 % (2.0-8.0); NEUTROPHILS % 66.7 % (40.0-76.0); PLATELET 196 x1000/uL (130-400); RED BLOOD CELL COUNT 4.35 mill/uL (4.7-6.1)
[2019-04-25 12:44] LABS: CHLORIDE 103 mEq/L (98-107)
[2019-04-25 14:03] LABS: CLARITY URINE CLOUDY (CLEAR); COLOR URINE YELLOW (YELLOW); KETONES URINE NEGATIVE (NEGATIVE); LEUKOCYTE ESTERASE URINE 3+ (NEGATIVE); NITRITE URINE NEGATIVE (NEGATIVE); OCCULT BLOOD URINE 2+ (NEGATIVE); PH URINE 6.5 (4.5-8.0); PROTEIN URINE 1+ (NEGATIVE); UROBILINOGEN URINE 0.2 E.U./dL (0.2-1.0)
[2019-04-25 14:37] LABS: *AMPHETAMINES SCREEN URINE NEGATIVE (NEGATIVE)
[2019-04-25 14:38] LABS: *BARBITURATES SCREEN URINE NEGATIVE (NEGATIVE); *BENZODIAZEPINES SCREEN URINE NEGATIVE (NEGATIVE); *COCAINE SCREEN URINE NEGATIVE (NEGATIVE); METHADONE URINE SCREEN NEGATIVE (NEGATIVE); OPIATES URINE SCREEN NEGATIVE (NEGATIVE); PHENCYCLIDINE URINE SCREEN NEGATIVE (NEGATIVE)
[2019-04-25 14:39] LABS: CANNABINOID URINE SCREEN NEGATIVE (NEGATIVE)
[2019-04-25] MEDS ORDERED: CLONIDINE 0.1MG TABLET PO PRN (15:00)
[2019-04-25] MEDS ORDERED: ONDANSETRON HCL 4MG/2ML INJ IV PRN (15:00)
[2019-04-25] MEDS ORDERED: ACETAMINOPHEN 325MG TABLET PO PRN (15:00)
[2019-04-25] MEDS ORDERED: DOCUSATE SODIUM 100MG CAPSULE PO PRN (15:00)
[2019-04-25 18:19] VITALS: BP 133/73
[2019-04-25] MEDS: METFORMIN HCL 500MG TABLET PO SCH (19:00)
[2019-04-25] MEDS: ENOXAPARIN 40MG/0.4ML SYR SUBCUT SCH (19:01)
[2019-04-25 20:00] VITALS: BP 144/88
[2019-04-25] MEDS: CEFTRIAXONE 1 G PREMIX 50 ML IV SCH (22:33)
[2019-04-25] MEDS: SODIUM CHLORIDE 0.45% 1,000 ML IV SCH (22:34)
[2019-04-25] MEDS: CARVEDILOL 3.125 MG TABLET PO SCH (22:34)
[2019-04-25] MEDS: ATORVASTATIN CALCIUM 20MG TABLET PO SCH (22:34)
[2019-04-26] VITALS (7 sets, daily range): BP systolic 125–135; BP diastolic 72–82
[2019-04-26] MEDS ORDERED: DEXTROSE 50% WATER 50ML SYRINGE IV PRN (02:15)
[2019-04-26] MEDS: SODIUM CHLORIDE 0.45% 1,000 ML IV SCH (03:56)
[2019-04-26 06:46] LABS: BASOPHILS % 0.5 % (0.0-2.0); EOSINOPHILS % 8.5 % (0.0-5.0); HEMATOCRIT. 35.7 % (42.0-52.0); HEMOGLOBIN. 12.1 g/dL (14.0-18.0); MEAN CORPUSCULAR HEMOGLOBIN 28.8 pg (28.0-32.0); MEAN CORPUSCULAR VOLUME 84.8 fL (80.0-94.0); MEAN PLATELET VOLUME 8.6 fl (7.4-10.4); MONOCYTES % 9.4 % (2.0-8.0); NEUTROPHILS % 60.6 % (40.0-76.0); PLATELET 197 x1000/uL (130-400); RED BLOOD CELL COUNT 4.21 mill/uL (4.7-6.1); RED CELL DISTRIBUTION WIDTH 14.8 % (11.6-14.6)
[2019-04-26 06:55] LABS: CHLORIDE 107 mEq/L (98-107)
[2019-04-26 07:02] LABS: LDL CHOLESTEROL 41 mg/dL (5-100)
[2019-04-26 07:03] LABS: HDL CHOLESTEROL 50 mg/dL (40-59)
[2019-04-26] MEDS: BLOOD SUGAR DIAGNOSTIC STRIP TEST SCH ×4 (07:40→21:46)
[2019-04-26] MEDS: INSULIN LISPRO 100 UNITS/ML SUBCUT SCH ×4 (08:10→21:00)
[2019-04-26] MEDS: METFORMIN HCL 500MG TABLET PO SCH ×2 (09:59→18:55)
[2019-04-26] MEDS: FINASTERIDE 5MG TABLET PO SCH (09:59)
[2019-04-26] MEDS: CARVEDILOL 3.125 MG TABLET PO SCH ×2 (09:59→21:46)
[2019-04-26] MEDS: TAMSULOSIN HCL 0.4MG SR CAPSULE PO SCH (09:59)
[2019-04-26] MEDS: FUROSEMIDE 40MG TABLET PO SCH (10:04)
[2019-04-26 16:28] LABS: T4 FREE 1.02 ng/dL (0.76-1.46)
[2019-04-26] MEDS: ENOXAPARIN 40MG/0.4ML SYR SUBCUT SCH (18:55)
[2019-04-26] MEDS: ATORVASTATIN CALCIUM 20MG TABLET PO SCH (21:46)
[2019-04-26] MEDS: CEFTRIAXONE 1 G PREMIX 50 ML IV SCH (22:50)
[2019-04-27] VITALS: BP 145/81
[2019-04-27 00:09] LABS: CREATINE KINASE 45 IU/L (39-308)
[2019-04-27 00:10] LABS: CREATINE KINASE MB FRACTION < 1.0 ng/mL (0.5-3.6)
[2019-04-27 04:00] VITALS: BP 135/85
[2019-04-27 06:01] LABS: BASOPHILS % 0.6 % (0.0-2.0); EOSINOPHILS % 6.2 % (0.0-5.0); HEMATOCRIT. 33.6 % (42.0-52.0); HEMOGLOBIN. 11.4 g/dL (14.0-18.0); LYMPHOCYTES % 16.2 % (20.0-50.0); MEAN CORPUSCULAR HEMOGLOBIN 28.7 pg (28.0-32.0); MEAN CORPUSCULAR VOLUME 84.6 fL (80.0-94.0); MEAN PLATELET VOLUME 8.4 fl (7.4-10.4); PLATELET 179 x1000/uL (130-400); RED BLOOD CELL COUNT 3.97 mill/uL (4.7-6.1); RED CELL DISTRIBUTION WIDTH 14.6 % (11.6-14.6)
[2019-04-27 06:22] LABS: CHLORIDE 104 mEq/L (98-107)
[2019-04-27 06:34] LABS: CREATINE KINASE 40 IU/L (39-308)
[2019-04-27 06:43] LABS: CREATINE KINASE MB FRACTION < 1.0 ng/mL (0.5-3.6)
[2019-04-27] MEDS ORDERED: POTASSIUM CHLORIDE 20MEQ TABLET SR PO NR (07:15)
[2019-04-27] MEDS: BLOOD SUGAR DIAGNOSTIC STRIP TEST SCH ×2 (07:43→12:20)
[2019-04-27 08:00] VITALS: BP 123/72
[2019-04-27] MEDS: INSULIN LISPRO 100 UNITS/ML SUBCUT SCH ×2 (08:10→12:20)
[2019-04-27] MEDS: METFORMIN HCL 500MG TABLET PO SCH (09:02)
[2019-04-27] MEDS: FUROSEMIDE 40MG TABLET PO SCH (09:03)
[2019-04-27] MEDS: FINASTERIDE 5MG TABLET PO SCH (09:03)
[2019-04-27] MEDS: CARVEDILOL 3.125 MG TABLET PO SCH (09:03)
[2019-04-27] MEDS: TAMSULOSIN HCL 0.4MG SR CAPSULE PO SCH (09:05)
[2019-04-27 12:00] VITALS: BP 143/82
== END 2019-04-27 15:35 | disposition left against medical advice (07) | DRG 698 ==
LOC: ER 11:01 → 7WST 14:09 → EDBEDREQSVC 14:14 → EDBEDREQTM 14:14 → EDBEDREQ 14:14 → ENRESERV 14:46
PROVIDERS: ADMIT Internal Medicine Nephrology; ATTEND Internal Medicine Nephrology
PROC: 0T2BX0Z Change Drainage Device in Bladder, External Approach (ICD-10-PCS; principal; 2019-04-25)
DX: T83.021A Displacement of indwelling urethral catheter, initial encounter (principal); I50.23 Acute on chronic systolic (congestive) heart failure; I13.0 Hypertensive heart and chronic kidney disease with heart failure and stage 1 through stage 4 chronic kidney disease, or unspecified chronic kidney disease; I69.351 Hemiplegia and hemiparesis following cerebral infarction affecting right dominant side; I42.9 Cardiomyopathy, unspecified; T83.038A Leakage of other urinary catheter, initial encounter; E78.00 Pure hypercholesterolemia, unspecified; Z53.29 Procedure and treatment not carried out because of patient's decision for other reasons; R33.8 Other retention of urine; N40.1 Benign prostatic hyperplasia with lower urinary tract symptoms; N13.9 Obstructive and reflux uropathy, unspecified; E11.22 Type 2 diabetes mellitus with diabetic chronic kidney disease; D64.9 Anemia, unspecified; E87.6 Hypokalemia; N30.90 Cystitis, unspecified without hematuria; Y73.8 Miscellaneous gastroenterology and urology devices associated with adverse incidents, not elsewhere classified; Z90.49 Acquired absence of other specified parts of digestive tract; Y92.89 Other specified places as the place of occurrence of the external cause; Z95.810 Presence of automatic (implantable) cardiac defibrillator
CPT/HCPCS: 36415; 51702; 71045; 74176; 80048; 80061; 80305; 81003; 82550; 82553; 82962; 83036; 83605; 83735; 83880; 84100; 84439; 84443; 84484; 85379; 85651; 87077; 87186; 93005; 93306; 93970; 99285; J0696; J1650; J1815; A4315

== ENCOUNTER 2019-09-18 16:42 | Inpatient (IN) | payer MEDICARE, OTHER ==
[~2019-09-18] VITALS: Ht 188 cm; Wt 94.3 kg
[2019-09-18] MEDS ORDERED: ONDANSETRON HCL 4MG/2ML INJ IV STA (17:03)
[2019-09-18 17:35] LABS: HEMATOCRIT. 34.9 % (42.0-52.0); HEMOGLOBIN. 11.6 g/dL (14.0-18.0); MEAN CORPUSCULAR HEMOGLOBIN 28.3 pg (28.0-32.0); MEAN CORPUSCULAR VOLUME 85.3 fL (80.0-94.0); MEAN PLATELET VOLUME 9.2 fl (7.4-10.4); PLATELET 209 x1000/uL (130-400); RED CELL DISTRIBUTION WIDTH 14.7 % (11.6-14.6)
[2019-09-18 17:41] LABS: CHLORIDE 101 mEq/L (98-107)
[2019-09-18] MEDS ORDERED: LEVOFLOXACIN 750MG PREMIX 150 ML IV ONE (17:45)
[2019-09-18] MEDS ORDERED: SODIUM CHLORIDE 0.9% 1000ML BAG (SEPSIS BOLUS) IV ONE (17:45)
[2019-09-18 17:49] LABS: INR 1.1; PARTIAL THROMBOPLASTIN TIME 28.7 sec (23.4-31.0); PROTHROMBIN TIME 11.5 sec (9.6-11.0)
[2019-09-18 17:50] LABS: PLATELET ESTIMATE NORMAL
[2019-09-18 18:18] LABS: BG BASE EXCESS 3.7 mmol/L (-2.0-2.0); BG CARBOXYHEMOGLOBIN 0.3 % (0.5-1.5); BG DEOXYHEMOGLOBIN 1.5 % (0.0-5.0); BG FRACTION INSPIRED OXYGEN 100; BG HCO3 ACT 28.3 mmol/L (22.0-26.0); BG METHEMOGLOBIN 0.3 % (0.0-1.5); BG OXYGEN SATURATION 98.5 % (92.0-98.5); BG OXYHEMOGLOBIN 97.9 % (94.0-97.0); BG PCO2 42.8 mmHg (35.0-45.0); BG PH 7.438 (7.350-7.450); BG PO2 148.3 mmHg (75.0-100.0); BG SAMPLE SITE RIGHT RADIAL; BG TOTAL HEMOGLOBIN 12.7 g/dL (12.0-18.0); BG VENT MODE MASK - NRB
[2019-09-18] MEDS ORDERED: DOCUSATE SODIUM 100MG CAPSULE PO PRN (18:30)
[2019-09-18] MEDS ORDERED: CLONIDINE 0.1MG TABLET PO PRN (18:30)
[2019-09-18] MEDS ORDERED: ACETAMINOPHEN 325MG TABLET PO PRN (18:30)
[2019-09-18] MEDS ORDERED: ONDANSETRON HCL 4MG/2ML INJ IV PRN (18:30)
[2019-09-18] MEDS ORDERED: MORPHINE SULFATE 2 MG/ML CPJ (NOT FOR IM USE) IV PRN (18:30)
[2019-09-18 18:45] LABS: CLARITY URINE CLOUDY (CLEAR); COLOR URINE YELLOW (YELLOW); KETONES URINE NEGATIVE (NEGATIVE); LEUKOCYTE ESTERASE URINE 1+ (NEGATIVE); NITRITE URINE NEGATIVE (NEGATIVE); OCCULT BLOOD URINE 2+ (NEGATIVE); PROTEIN URINE 2+ (NEGATIVE); SPECIFIC GRAVITY URINE 1.016 (1.005-1.030)
[2019-09-18] MEDS: METHYLPREDNISOLONE SOD SUCC 125 MG/2 ML VIAL IV SCH (21:54)
[2019-09-18 23:10] VITALS: BP 158/91
[2019-09-18] MEDS ORDERED: SODIUM CHLORIDE 0.45% 1,000 ML IV SCH (23:45)
[2019-09-19] VITALS (8 sets, daily range): BP systolic 117–169; BP diastolic 65–94
[2019-09-19] MEDS ORDERED: CEFTRIAXONE 1 G PREMIX 50 ML IV SCH ×2 (01:00→20:00)
[2019-09-19] MEDS ORDERED: METF-414 MT (01:19)
[2019-09-19] MEDS ORDERED: NIFEDIPINE 10MG CAPSULE PO SCH (06:00)
[2019-09-19] MEDS: METHYLPREDNISOLONE SOD SUCC 125 MG/2 ML VIAL IV SCH ×2 (06:21→14:24)
[2019-09-19] MEDS: HYDRALAZINE HCL 25MG TABLET PO SCH ×3 (06:21→21:18)
[2019-09-19] MEDS: NIFEDIPINE XL 30MG TAB PO SCH (07:13)
[2019-09-19] MEDS: METFORMIN HCL 500MG TABLET PO SCH ×2 (07:13→16:49)
[2019-09-19 09:22] LABS: HEMATOCRIT. 34.4 % (42.0-52.0); HEMOGLOBIN. 11.2 g/dL (14.0-18.0); MEAN CORPUSCULAR HEMOGLOBIN 28.1 pg (28.0-32.0); MEAN CORPUSCULAR VOLUME 86.4 fL (80.0-94.0); MEAN PLATELET VOLUME 9.3 fl (7.4-10.4); PLATELET 190 x1000/uL (130-400); RED BLOOD CELL COUNT 3.98 mill/uL (4.7-6.1); RED CELL DISTRIBUTION WIDTH 14.6 % (11.6-14.6)
[2019-09-19] MEDS: TAMSULOSIN HCL 0.4MG SR CAPSULE PO SCH (10:24)
[2019-09-19] MEDS: FINASTERIDE 5MG TABLET PO SCH (10:24)
[2019-09-19] MEDS: CARVEDILOL 12.5MG TABLET PO SCH ×2 (10:25→21:17)
[2019-09-19] MEDS: ENOXAPARIN 40MG/0.4ML SYR SUBCUT SCH (10:25)
[2019-09-19 11:33] LABS: PLATELET ESTIMATE NORMAL
[2019-09-19] MEDS ORDERED: IPRATROPIUM/ALBUTEROL 0.5-3(2.5)MG/3ML NEB HHN PRN (13:45)
[2019-09-19] MEDS ORDERED: VANCOMYCIN 1500MG in DEXTROSE 5% WATER 250ML IV SCH (14:00)
[2019-09-19] MEDS ORDERED: DEXTROSE 50% WATER 50ML SYRINGE IV PRN ×3 (18:15→21:45)
[2019-09-19] MEDS ORDERED: INSULIN LISPRO 100 UNITS/ML SUBCUT SCH (18:30)
[2019-09-19] MEDS ORDERED: BLOOD SUGAR DIAGNOSTIC STRIP TEST SCH ×2 (21:00)
[2019-09-19] MEDS: ATORVASTATIN CALCIUM 20MG TABLET PO SCH (21:18)
[2019-09-19] MEDS: GUAIFENESIN 600MG ER TABLET PO SCH (21:18)
[2019-09-19] MEDS: INSULIN LISPRO 100 UNITS/ML SUBCUT SCH (21:45)
[2019-09-19] MEDS: BLOOD SUGAR DIAGNOSTIC STRIP TEST SCH (21:46)
[2019-09-19] MEDS: CEFTRIAXONE 1 G PREMIX 50 ML IV SCH (23:12)
[2019-09-20] VITALS: BP 125/73
[2019-09-20] MEDS: VANCOMYCIN 1250MG in DEXTROSE 5% WATER 250ML IV SCH ×2 (02:18→17:01)
[2019-09-20 04:00] VITALS: BP 113/72
[2019-09-20] MEDS: HYDRALAZINE HCL 25MG TABLET PO SCH ×3 (06:32→21:33)
[2019-09-20] MEDS: BLOOD SUGAR DIAGNOSTIC STRIP TEST SCH ×4 (06:40→20:44)
[2019-09-20 08:00] VITALS: BP 110/62
[2019-09-20] MEDS: LOSARTAN POTASSIUM 25 MG TABLET PO SCH (08:59)
[2019-09-20] MEDS: FINASTERIDE 5MG TABLET PO SCH (08:59)
[2019-09-20] MEDS: GUAIFENESIN 600MG ER TABLET PO SCH ×2 (08:59→20:43)
[2019-09-20] MEDS: NIFEDIPINE XL 30MG TAB PO SCH (09:00)
[2019-09-20] MEDS: METFORMIN HCL 500MG TABLET PO SCH ×2 (09:00→17:01)
[2019-09-20] MEDS: CARVEDILOL 12.5MG TABLET PO SCH ×2 (09:00→20:43)
[2019-09-20] MEDS: TAMSULOSIN HCL 0.4MG SR CAPSULE PO SCH (09:01)
[2019-09-20] MEDS: ENOXAPARIN 40MG/0.4ML SYR SUBCUT SCH (09:01)
[2019-09-20] MEDS: INSULIN LISPRO 100 UNITS/ML SUBCUT SCH ×4 (09:13→20:44)
[2019-09-20] MEDS: INSULIN GLARGINE UD 100 UNITS/ML SYR SUBCUT SCH (09:36)
[2019-09-20 12:00] VITALS: BP 117/70
[2019-09-20 16:00] VITALS: BP 118/67
[2019-09-20] MEDS: AZITHROMYCIN 500 MG in DEXT 5% WATER 250 ML IV SCH (17:01)
[2019-09-20] MEDS ORDERED: IOHEXOL-350 100 ML BOTTLE ONE (17:29)
[2019-09-20 20:00] VITALS: BP 122/74
[2019-09-20] MEDS: ATORVASTATIN CALCIUM 20MG TABLET PO SCH (20:43)
[2019-09-20] MEDS: CEFTRIAXONE 1 G PREMIX 50 ML IV SCH (21:33)
[2019-09-21] VITALS (7 sets, daily range): BP systolic 102–134; BP diastolic 64–84
[2019-09-21] MEDS: VANCOMYCIN 1250MG in DEXTROSE 5% WATER 250ML IV SCH ×2 (01:35→13:05)
[2019-09-21] MEDS: HYDRALAZINE HCL 25MG TABLET PO SCH ×3 (06:02→21:40)
[2019-09-21] MEDS: BLOOD SUGAR DIAGNOSTIC STRIP TEST SCH ×4 (06:26→21:14)
[2019-09-21] MEDS: TAMSULOSIN HCL 0.4MG SR CAPSULE PO SCH (09:04)
[2019-09-21] MEDS: CARVEDILOL 12.5MG TABLET PO SCH ×2 (09:05→21:38)
[2019-09-21] MEDS: NIFEDIPINE XL 30MG TAB PO SCH (09:05)
[2019-09-21] MEDS: GUAIFENESIN 600MG ER TABLET PO SCH ×2 (09:05→21:38)
[2019-09-21] MEDS: FINASTERIDE 5MG TABLET PO SCH (09:05)
[2019-09-21] MEDS: METFORMIN HCL 500MG TABLET PO SCH ×2 (09:05→16:51)
[2019-09-21] MEDS: ENOXAPARIN 40MG/0.4ML SYR SUBCUT SCH (09:07)
[2019-09-21] MEDS: INSULIN LISPRO 100 UNITS/ML SUBCUT SCH ×4 (09:09→21:00)
[2019-09-21] MEDS: INSULIN GLARGINE UD 100 UNITS/ML SYR SUBCUT SCH (09:09)
[2019-09-21] MEDS: LOSARTAN POTASSIUM 25 MG TABLET PO SCH (09:11)
[2019-09-21 12:25] LABS: BASOPHILS % 0.5 % (0.0-2.0); EOSINOPHILS % 1.6 % (0.0-5.0); HEMATOCRIT. 33.7 % (42.0-52.0); HEMOGLOBIN. 11.1 g/dL (14.0-18.0); LYMPHOCYTES % 11.9 % (20.0-50.0); MEAN CORPUSCULAR VOLUME 85.5 fL (80.0-94.0); MONOCYTES % 6.4 % (2.0-8.0); NEUTROPHILS % 79.6 % (40.0-76.0); PLATELET 259 x1000/uL (130-400); RED BLOOD CELL COUNT 3.94 mill/uL (4.7-6.1); RED CELL DISTRIBUTION WIDTH 14.8 % (11.6-14.6)
[2019-09-21 12:33] LABS: CHLORIDE 101 mEq/L (98-107)
[2019-09-21] MEDS: AZITHROMYCIN 500 MG in DEXT 5% WATER 250 ML IV SCH (16:51)
[2019-09-21] MEDS: CEFTRIAXONE 1 G PREMIX 50 ML IV SCH (20:32)
[2019-09-21] MEDS: ATORVASTATIN CALCIUM 20MG TABLET PO SCH (21:38)
[2019-09-22] VITALS: BP 135/79
[2019-09-22] MEDS: VANCOMYCIN 1250MG in DEXTROSE 5% WATER 250ML IV SCH ×2 (01:54→13:08)
[2019-09-22 04:00] VITALS: BP 131/85
[2019-09-22] MEDS: HYDRALAZINE HCL 25MG TABLET PO SCH ×2 (05:47→13:08)
[2019-09-22] MEDS: BLOOD SUGAR DIAGNOSTIC STRIP TEST SCH ×2 (05:49→12:16)
[2019-09-22 06:02] LABS: BASOPHILS % 0.2 % (0.0-2.0); EOSINOPHILS % 5.1 % (0.0-5.0); HEMATOCRIT. 32.8 % (42.0-52.0); HEMOGLOBIN. 10.8 g/dL (14.0-18.0); LYMPHOCYTES % 22.6 % (20.0-50.0); MEAN CORPUSCULAR HEMOGLOBIN 28.1 pg (28.0-32.0); MEAN CORPUSCULAR VOLUME 85.1 fL (80.0-94.0); MEAN PLATELET VOLUME 8.7 fl (7.4-10.4); MONOCYTES % 8.1 % (2.0-8.0); PLATELET 255 x1000/uL (130-400); RED BLOOD CELL COUNT 3.85 mill/uL (4.7-6.1); RED CELL DISTRIBUTION WIDTH 14.7 % (11.6-14.6)
[2019-09-22 06:48] LABS: CHLORIDE 102 mEq/L (98-107)
[2019-09-22] MEDS: TAMSULOSIN HCL 0.4MG SR CAPSULE PO SCH (08:41)
[2019-09-22] MEDS: FINASTERIDE 5MG TABLET PO SCH (08:41)
[2019-09-22] MEDS: GUAIFENESIN 600MG ER TABLET PO SCH (08:41)
[2019-09-22] MEDS: NIFEDIPINE XL 30MG TAB PO SCH (08:41)
[2019-09-22] MEDS: CARVEDILOL 12.5MG TABLET PO SCH (08:42)
[2019-09-22] MEDS: ENOXAPARIN 40MG/0.4ML SYR SUBCUT SCH (08:42)
[2019-09-22] MEDS: METFORMIN HCL 500MG TABLET PO SCH (08:42)
[2019-09-22] MEDS: INSULIN LISPRO 100 UNITS/ML SUBCUT SCH ×2 (08:48→13:20)
[2019-09-22] MEDS: LOSARTAN POTASSIUM 25 MG TABLET PO SCH (09:28)
[2019-09-22] MEDS: INSULIN GLARGINE UD 100 UNITS/ML SYR SUBCUT SCH (09:32)
[2019-09-22 12:00] VITALS: BP 151/88
[2019-09-22 16:00] VITALS: BP 139/69
== END 2019-09-22 19:40 | disposition home or self-care (01) | DRG 871 ==
LOC: ER 16:42 → 7EST 18:51 → EDBEDREQSVC 19:00 → EDBEDREQ 19:00 → ENRESERV 21:34 → 6WST 09-19 18:57
PROVIDERS: ADMIT Internal Medicine Nephrology; ATTEND Internal Medicine Nephrology
DX: A41.9 Sepsis, unspecified organism (principal); I50.23 Acute on chronic systolic (congestive) heart failure; J18.9 Pneumonia, unspecified organism; J96.00 Acute respiratory failure, unspecified whether with hypoxia or hypercapnia; E44.1 Mild protein-calorie malnutrition; I42.0 Dilated cardiomyopathy; I69.351 Hemiplegia and hemiparesis following cerebral infarction affecting right dominant side; J44.0 Chronic obstructive pulmonary disease with (acute) lower respiratory infection; N13.8 Other obstructive and reflux uropathy; R04.2 Hemoptysis; E78.5 Hyperlipidemia, unspecified; I11.0 Hypertensive heart disease with heart failure; N40.1 Benign prostatic hyperplasia with lower urinary tract symptoms; E11.9 Type 2 diabetes mellitus without complications; Z95.810 Presence of automatic (implantable) cardiac defibrillator; I25.10 Atherosclerotic heart disease of native coronary artery without angina pectoris; Z90.49 Acquired absence of other specified parts of digestive tract; Z79.84 Long term (current) use of oral hypoglycemic drugs; Z79.899 Other long term (current) drug therapy; Z68.26 Body mass index [BMI] 26.0-26.9, adult
CPT/HCPCS: 36415; 36600; 71045; 71275; 80048; 80053; 80061; 80202; 81003; 82375; 82805; 82962; 83605; 83880; 84145; 84484; 85025; 87070; 87804; 93005; 96365; 99291; J0456; J0696; J1650; J1815; J1956; J2930; J3370; J7030; J7060; Q9967

== ENCOUNTER 2020-04-11 10:45 | Emergency (ER) | payer OTHER ==
[~2020-04-11] VITALS: Ht 177.8 cm; Wt 101.0 kg
[~2020-04-11 10:45] MED LIST changes: -CHOL100046 PO; -MAGN400C PO; +METF-414 MT; -METF-416 PO
[2020-04-11 12:01] VITALS: BP 152/79
== END 2020-04-11 12:02 | disposition home or self-care (01) ==
LOC: ER 10:53
DX: T83.098A Other mechanical complication of other urinary catheter, initial encounter (principal); X58.XXXA Exposure to other specified factors, initial encounter; I50.9 Heart failure, unspecified; J44.9 Chronic obstructive pulmonary disease, unspecified; E11.9 Type 2 diabetes mellitus without complications; Z86.73 Personal history of transient ischemic attack (TIA), and cerebral infarction without residual deficits; Z90.49 Acquired absence of other specified parts of digestive tract; Z95.0 Presence of cardiac pacemaker; Z79.899 Other long term (current) drug therapy
CPT/HCPCS: 51702; 99284

== ENCOUNTER 2021-07-11 11:15 | Emergency (ER) | payer MEDICARE, OTHER ==
[~2021-07-11] VITALS: Ht 175.3 cm; Wt 100.0 kg
[~2021-07-11 11:15] MED LIST changes: -GABA-531 PO; +GABA-532 PO
[2021-07-11 12:02] VITALS: BP 118/71
== END 2021-07-11 13:10 | disposition home or self-care (01) ==
LOC: ER 11:15
DX: T83.098A Other mechanical complication of other urinary catheter, initial encounter (principal); X58.XXXA Exposure to other specified factors, initial encounter; I50.9 Heart failure, unspecified; J44.9 Chronic obstructive pulmonary disease, unspecified; E11.9 Type 2 diabetes mellitus without complications; Z86.73 Personal history of transient ischemic attack (TIA), and cerebral infarction without residual deficits; Z95.0 Presence of cardiac pacemaker; Z90.49 Acquired absence of other specified parts of digestive tract; Z79.899 Other long term (current) drug therapy
CPT/HCPCS: 99282

== ENCOUNTER 2022-01-05 21:01 | Emergency (ER) | payer OTHER, MEDICAID | END 2022-01-05 22:15 | disposition left against medical advice (07) | LOC: ER 21:01 | DX: Z53.21 Procedure and treatment not carried out due to patient leaving prior to being seen by health care provider (principal) ==

== ENCOUNTER 2022-02-13 11:07 | Emergency (ER) | payer MEDICARE, MEDICAID ==
[~2022-02-13] VITALS: Ht 177.8 cm; Wt 91.0 kg
[2022-02-13 11:16] VITALS: BP 149/93
[2022-02-13 12:22] LABS: CLARITY URINE CLOUDY (CLEAR); COLOR URINE YELLOW (YELLOW); KETONES URINE NEGATIVE (NEGATIVE); LEUKOCYTE ESTERASE URINE TRACE (NEGATIVE); NITRITE URINE POSITIVE (NEGATIVE); OCCULT BLOOD URINE 2+ (NEGATIVE); PROTEIN URINE 3+ (NEGATIVE)
[2022-02-13 14:05] LABS: BASOPHILS % 0.7 % (0.0-2.0); EOSINOPHILS % 6.3 % (0.0-5.0); HEMATOCRIT. 39.6 % (42.0-52.0); HEMOGLOBIN. 12.4 g/dL (14.0-18.0); LYMPHOCYTES % 17.7 % (20.0-50.0); MEAN CORPUSCULAR HEMOGLOBIN 24.4 pg (28.0-32.0); MEAN CORPUSCULAR VOLUME 77.9 fL (80.0-94.0); MEAN PLATELET VOLUME 8.7 fl (7.4-10.4); MONOCYTES % 8.7 % (2.0-8.0); NEUTROPHILS % 66.6 % (40.0-76.0); PLATELET 175 x1000/uL (130-400); RED BLOOD CELL COUNT 5.09 mill/uL (4.7-6.1); RED CELL DISTRIBUTION WIDTH 17.9 % (11.6-14.6)
[2022-02-13] MEDS ORDERED: FLUCONAZOLE 100MG TABLET PO ONE (14:15)
[2022-02-13 14:27] LABS: CHLORIDE 104 mEq/L (98-107)
[2022-02-13] MEDS ORDERED: FLUCONAZOLE 150MG TABLET PO NR (14:30)
[2022-02-13] MEDS ORDERED: CEFP200T13 MT (14:44)
== END 2022-02-13 14:59 | disposition home or self-care (01) ==
LOC: ER 11:07
DX: N39.0 Urinary tract infection, site not specified (principal); B37.9 Candidiasis, unspecified; I50.9 Heart failure, unspecified; J44.9 Chronic obstructive pulmonary disease, unspecified; E11.9 Type 2 diabetes mellitus without complications; Z86.73 Personal history of transient ischemic attack (TIA), and cerebral infarction without residual deficits; Z90.49 Acquired absence of other specified parts of digestive tract; Z95.0 Presence of cardiac pacemaker; Z79.899 Other long term (current) drug therapy
CPT/HCPCS: 36415; 80053; 81003; 85025; 99283

== ENCOUNTER 2022-04-13 17:58 | Inpatient (IN) | payer MEDICARE, MEDICAID ==
[~2022-04-13] VITALS: Ht 177.8 cm; Wt 99.8 kg
[~2022-04-13 17:58] MED LIST changes: +CEFP200T13 MT
[2022-04-13] MEDS ORDERED: FUROSEMIDE 40MG/4ML VIAL IV ONE (22:45)
[2022-04-13 23:47] LABS: BASOPHILS % 0.7 % (0.0-2.0); EOSINOPHILS % 4.9 % (0.0-5.0); HEMATOCRIT. 39.9 % (42.0-52.0); HEMOGLOBIN. 11.5 g/dL (14.0-18.0); LYMPHOCYTES % 14.9 % (20.0-50.0); MEAN CORPUSCULAR HEMOGLOBIN 22.2 pg (28.0-32.0); MEAN CORPUSCULAR VOLUME 76.8 fL (80.0-94.0); MONOCYTES % 8.8 % (2.0-8.0); NEUTROPHILS % 70.7 % (40.0-76.0); RED CELL DISTRIBUTION WIDTH 18.7 % (11.6-14.6)
[2022-04-14 00:02] LABS: CHLORIDE 98 mEq/L (98-107)
[2022-04-14 03:00] LABS: PLATELET ESTIMATE NORMAL
[2022-04-14 03:02] LABS: MEAN PLATELET VOLUME 9.5 fl (7.4-10.4); PLATELET 166 x1000/uL (130-400)
[2022-04-14] MEDS ORDERED: ONDANSETRON HCL 4MG/2ML INJ IV PRN (05:45)
[2022-04-14] MEDS ORDERED: TRAMADOL 50MG TABLET PO PRN (05:45)
[2022-04-14] MEDS ORDERED: GUAIFENESIN 200MG/10ML SUGAR FREE UDC PO PRN (05:45)
[2022-04-14] MEDS ORDERED: MAGNESIUM/ALUMINUM HYDROXIDE/SIMETHICONE 30ML UDC PO PRN (05:45)
[2022-04-14] MEDS ORDERED: DOCUSATE SODIUM 100MG CAPSULE PO PRN (05:45)
[2022-04-14] MEDS ORDERED: ACETAMINOPHEN 325MG TABLET PO PRN (05:45)
[2022-04-14] MEDS: TAMSULOSIN HCL 0.4MG SR CAPSULE PO SCH ×2 (06:44→11:54)
[2022-04-14] MEDS: FINASTERIDE 5MG TABLET PO SCH ×2 (06:46→11:53)
[2022-04-14 09:17] VITALS: BP 152/91
[2022-04-14] MEDS ORDERED: NALOXONE HCL 0.4MG/ML VIAL IV PRN (10:00)
[2022-04-14] MEDS ORDERED: DEXTROSE 50% WATER 50ML SYRINGE IV PRN (11:45)
[2022-04-14] MEDS: CARVEDILOL 12.5MG TABLET PO SCH ×2 (11:52→17:40)
[2022-04-14] MEDS: GABAPENTIN 300MG CAPSULE PO SCH (11:52)
[2022-04-14] MEDS: METFORMIN HCL 500MG TABLET PO SCH ×2 (11:53→17:40)
[2022-04-14] MEDS: POTASSIUM CHLORIDE 20MEQ TABLET SR PO SCH (11:53)
[2022-04-14] MEDS: AMLODIPINE 10MG TABLET PO SCH (11:53)
[2022-04-14] MEDS: BLOOD SUGAR DIAGNOSTIC STRIP TEST SCH ×3 (11:54→20:46)
[2022-04-14] MEDS: ENOXAPARIN 40MG/0.4ML SYR SUBCUT SCH (11:54)
[2022-04-14] MEDS: FUROSEMIDE 40MG/4ML VIAL IV SCH ×2 (11:55→17:40)
[2022-04-14] MEDS: INSULIN LISPRO 100 UNITS/ML SUBCUT SCH ×4 (11:59→22:05)
[2022-04-14 12:00] VITALS: BP 130/70
[2022-04-14 16:00] VITALS: BP 126/66
[2022-04-14 18:27] LABS: CHLORIDE 99 mEq/L (98-107)
[2022-04-14 20:00] VITALS: BP 134/72
[2022-04-15] VITALS: BP 121/76
[2022-04-15 04:00] VITALS: BP 138/81
[2022-04-15] MEDS: BLOOD SUGAR DIAGNOSTIC STRIP TEST SCH ×4 (06:18→21:00)
[2022-04-15] MEDS: INSULIN LISPRO 100 UNITS/ML SUBCUT SCH ×5 (06:39→21:00)
[2022-04-15 08:00] VITALS: BP 141/92
[2022-04-15] MEDS: AMLODIPINE 10MG TABLET PO SCH (10:00)
[2022-04-15] MEDS: GABAPENTIN 300MG CAPSULE PO SCH (10:00)
[2022-04-15] MEDS: FUROSEMIDE 40MG/4ML VIAL IV SCH ×2 (10:00→17:55)
[2022-04-15] MEDS: METFORMIN HCL 500MG TABLET PO SCH ×2 (10:01→17:54)
[2022-04-15] MEDS: FINASTERIDE 5MG TABLET PO SCH (10:01)
[2022-04-15] MEDS: POTASSIUM CHLORIDE 20MEQ TABLET SR PO SCH (10:01)
[2022-04-15] MEDS: CARVEDILOL 12.5MG TABLET PO SCH ×2 (10:04→17:55)
[2022-04-15] MEDS: TAMSULOSIN HCL 0.4MG SR CAPSULE PO SCH (10:04)
[2022-04-15] MEDS: ENOXAPARIN 40MG/0.4ML SYR SUBCUT SCH (10:05)
[2022-04-15 10:45] LABS: BASOPHILS % 0.6 % (0.0-2.0); EOSINOPHILS % 3.8 % (0.0-5.0); HEMATOCRIT. 40.4 % (42.0-52.0); HEMOGLOBIN. 12.8 g/dL (14.0-18.0); LYMPHOCYTES % 11.7 % (20.0-50.0); MEAN PLATELET VOLUME 8.8 fl (7.4-10.4); MONOCYTES % 7.8 % (2.0-8.0); NEUTROPHILS % 76.1 % (40.0-76.0); PLATELET 205 x1000/uL (130-400); RED BLOOD CELL COUNT 5.31 mill/uL (4.7-6.1); RED CELL DISTRIBUTION WIDTH 18.6 % (11.6-14.6)
[2022-04-15 10:59] LABS: CHLORIDE 98 mEq/L (98-107)
[2022-04-15 11:10] LABS: HDL CHOLESTEROL 65 mg/dL (40-59); LDL CHOLESTEROL 54 mg/dL (5-100)
[2022-04-15 12:00] VITALS: BP 130/66
[2022-04-15] MEDS: LOSARTAN POTASSIUM 25 MG TABLET PO SCH (12:49)
[2022-04-15 16:00] VITALS: BP 127/75
[2022-04-15] MEDS: APIXABAN 5 MG TABLET PO SCH (17:54)
[2022-04-16] VITALS (10 sets, daily range): BP systolic 100–139; BP diastolic 56–86
[2022-04-16] MEDS: BLOOD SUGAR DIAGNOSTIC STRIP TEST SCH ×4 (07:20→20:56)
[2022-04-16] MEDS: POTASSIUM CHLORIDE 20MEQ TABLET SR PO SCH (09:46)
[2022-04-16] MEDS: FUROSEMIDE 40MG/4ML VIAL IV SCH ×2 (09:46→18:13)
[2022-04-16] MEDS: APIXABAN 5 MG TABLET PO SCH ×2 (09:47→18:14)
[2022-04-16] MEDS: CARVEDILOL 12.5MG TABLET PO SCH ×2 (09:47→18:14)
[2022-04-16] MEDS: TAMSULOSIN HCL 0.4MG SR CAPSULE PO SCH (09:47)
[2022-04-16] MEDS: FINASTERIDE 5MG TABLET PO SCH (09:48)
[2022-04-16] MEDS: LOSARTAN POTASSIUM 25 MG TABLET PO SCH (09:48)
[2022-04-16] MEDS: GABAPENTIN 300MG CAPSULE PO SCH (09:48)
[2022-04-16] MEDS: METFORMIN HCL 500MG TABLET PO SCH ×2 (09:48→18:22)
[2022-04-16] MEDS: AMLODIPINE 10MG TABLET PO SCH (09:48)
[2022-04-16] MEDS: INSULIN LISPRO 100 UNITS/ML SUBCUT SCH ×4 (09:50→20:56)
[2022-04-16 12:00] LABS: BASOPHILS % 0.5 % (0.0-2.0); EOSINOPHILS % 4.3 % (0.0-5.0); LYMPHOCYTES % 13.2 % (20.0-50.0); MEAN CORPUSCULAR HEMOGLOBIN 24.2 pg (28.0-32.0); MEAN CORPUSCULAR VOLUME 76.5 fL (80.0-94.0); MEAN PLATELET VOLUME 8.6 fl (7.4-10.4); MONOCYTES % 8.5 % (2.0-8.0); NEUTROPHILS % 73.5 % (40.0-76.0); PLATELET 207 x1000/uL (130-400); RED BLOOD CELL COUNT 4.96 mill/uL (4.7-6.1); RED CELL DISTRIBUTION WIDTH 18.7 % (11.6-14.6)
[2022-04-16 12:10] LABS: CHLORIDE 98 mEq/L (98-107)
[2022-04-17 04:00] VITALS: BP 140/83
[2022-04-17] MEDS: BLOOD SUGAR DIAGNOSTIC STRIP TEST SCH ×4 (06:22→21:00)
[2022-04-17] MEDS: INSULIN LISPRO 100 UNITS/ML SUBCUT SCH ×4 (07:50→20:39)
[2022-04-17 08:00] VITALS: BP 122/77
[2022-04-17] MEDS: LOSARTAN POTASSIUM 25 MG TABLET PO SCH (09:16)
[2022-04-17] MEDS: TAMSULOSIN HCL 0.4MG SR CAPSULE PO SCH (09:17)
[2022-04-17] MEDS: FINASTERIDE 5MG TABLET PO SCH (09:17)
[2022-04-17] MEDS: METFORMIN HCL 500MG TABLET PO SCH ×2 (09:18→17:02)
[2022-04-17] MEDS: GABAPENTIN 300MG CAPSULE PO SCH (09:18)
[2022-04-17] MEDS: AMLODIPINE 10MG TABLET PO SCH (09:18)
[2022-04-17] MEDS: POTASSIUM CHLORIDE 20MEQ TABLET SR PO SCH (09:18)
[2022-04-17] MEDS: APIXABAN 5 MG TABLET PO SCH ×2 (09:18→17:02)
[2022-04-17] MEDS: CARVEDILOL 12.5MG TABLET PO SCH ×2 (09:18→17:03)
[2022-04-17] MEDS: FUROSEMIDE 40MG/4ML VIAL IV SCH ×2 (09:19→17:02)
[2022-04-17] MEDS ORDERED: IPRATROPIUM/ALBUTEROL 0.5-3(2.5)MG/3ML NEB HHN PRN (11:30)
[2022-04-17 12:00] VITALS: BP 120/70
[2022-04-17 15:32] LABS: CHLORIDE 100 mEq/L (98-107)
[2022-04-17 16:00] VITALS: BP 123/76
[2022-04-17 19:45] VITALS: BP 120/69
[2022-04-18] VITALS: BP 125/80
[2022-04-18 04:00] VITALS: BP 130/64
[2022-04-18] MEDS: INSULIN LISPRO 100 UNITS/ML SUBCUT SCH ×2 (07:50→13:20)
[2022-04-18] MEDS: BLOOD SUGAR DIAGNOSTIC STRIP TEST SCH ×2 (08:03→12:58)
[2022-04-18 08:05] VITALS: BP 125/74
[2022-04-18] MEDS: CARVEDILOL 12.5MG TABLET PO SCH (09:31)
[2022-04-18] MEDS: FUROSEMIDE 40MG/4ML VIAL IV SCH (09:31)
[2022-04-18] MEDS: TAMSULOSIN HCL 0.4MG SR CAPSULE PO SCH (09:31)
[2022-04-18] MEDS: METFORMIN HCL 500MG TABLET PO SCH (09:31)
[2022-04-18] MEDS: LOSARTAN POTASSIUM 25 MG TABLET PO SCH (09:31)
[2022-04-18] MEDS: FINASTERIDE 5MG TABLET PO SCH (09:31)
[2022-04-18] MEDS: APIXABAN 5 MG TABLET PO SCH (09:31)
[2022-04-18] MEDS: POTASSIUM CHLORIDE 20MEQ TABLET SR PO SCH (09:38)
[2022-04-18] MEDS: GABAPENTIN 300MG CAPSULE PO SCH (09:38)
[2022-04-18] MEDS: AMLODIPINE 10MG TABLET PO SCH (09:38)
[2022-04-18 10:54] VITALS: BP 125/74
[2022-04-18 12:00] VITALS: BP 100/57
== END 2022-04-18 18:36 | disposition home health service (06) | DRG 280 ==
LOC: ER 17:58 → 6WST 04-14 02:46 → ENRESERV 04-14 08:26 → 6WST 04-14 09:49
PROVIDERS: ADMIT Hospitalist; ATTEND Hospitalist
DX: I11.0 Hypertensive heart disease with heart failure (principal); I21.4 Non-ST elevation (NSTEMI) myocardial infarction; E43 Unspecified severe protein-calorie malnutrition; J96.00 Acute respiratory failure, unspecified whether with hypoxia or hypercapnia; I50.43 Acute on chronic combined systolic (congestive) and diastolic (congestive) heart failure; I69.351 Hemiplegia and hemiparesis following cerebral infarction affecting right dominant side; I47.20 Ventricular tachycardia, unspecified; Z20.822 Contact with and (suspected) exposure to COVID-19; E11.65 Type 2 diabetes mellitus with hyperglycemia; N40.0 Benign prostatic hyperplasia without lower urinary tract symptoms; I42.8 Other cardiomyopathies; I48.0 Paroxysmal atrial fibrillation; E78.5 Hyperlipidemia, unspecified; I27.20 Pulmonary hypertension, unspecified; I16.0 Hypertensive urgency; J44.9 Chronic obstructive pulmonary disease, unspecified; Z90.49 Acquired absence of other specified parts of digestive tract; Z95.810 Presence of automatic (implantable) cardiac defibrillator; Z68.31 Body mass index [BMI] 31.0-31.9, adult; Z91.14 Patient's other noncompliance with medication regimen; Z82.49 Family history of ischemic heart disease and other diseases of the circulatory system; Z79.899 Other long term (current) drug therapy; Z86.16 Personal history of COVID-19
CPT/HCPCS: 36415; 71045; 80053; 80061; 82962; 83036; 83735; 83880; 84100; 84484; 85025; 87426; 93005; 93306; 93923; 93970; 93971; 97162; 99285; C9803; J1650; J1815; J1940

== ENCOUNTER 2022-05-09 12:39 | Emergency (ER) | payer MEDICARE, MEDICAID ==
[~2022-05-09] VITALS: Ht 177.8 cm; Wt 100.0 kg
[2022-05-09] MEDS ORDERED: FUROSEMIDE 100MG/10ML VIAL IVP ONE (20:30)
[2022-05-09] MEDS ORDERED: FURO-151 MT (21:01)
[2022-05-09] MEDS ORDERED: BACITRACIN ZINC OINT UDPKT TOP ONE (23:15)
[2022-05-09 23:45] VITALS: BP 144/90
== END 2022-05-10 00:30 | disposition home or self-care (01) ==
LOC: ER 12:39
DX: G83.9 Paralytic syndrome, unspecified (principal); I50.9 Heart failure, unspecified; Z76.0 Encounter for issue of repeat prescription; J44.9 Chronic obstructive pulmonary disease, unspecified; E11.9 Type 2 diabetes mellitus without complications; Z86.73 Personal history of transient ischemic attack (TIA), and cerebral infarction without residual deficits; Z90.49 Acquired absence of other specified parts of digestive tract; F17.290 Nicotine dependence, other tobacco product, uncomplicated; F12.10 Cannabis abuse, uncomplicated; Z79.899 Other long term (current) drug therapy
CPT/HCPCS: 96374; 99283; J1940